=== PATIENT | male | born 1950 | race Caucasian/White ===

== ENCOUNTER 2020-08-06 23:15 | Inpatient (IN) | payer OTHER, MEDICARE ==
--- NOTE | 2020-08-06 23:59 | ER Document Report ---
ED General - General Chief Complaint: Low Blood Pressure Stated Complaint: LOW BLOOD PRESSURE,ALTERED MENTAL STATUS Time Seen by Provider: 08/06/20 23:41 - HPI Onset/Duration: Sudden Quality of pain: No pain Severity: None Pain Level: Denies Context: This is a 70-year-old male with a history of renal insufficiency, not on dialys is that presents from home by EMS for evaluation of reported low blood pressure and altered mental status. Patient states that his told him that he was acting "fuzzy headed" and was taking too much of his tramadol. Patient states he believes he is taking his tramadol appropriately as prescribed. Patient states he is taking 1 tablet every 4 hours. Patient himself is without complaint other than a slight cough. Patient denies chest pain, shortness of breath, confusion, fever, chills, loss of sensation of taste or smell, nausea/vomiting, headache, visual changes. Patient states that nothing seems to exacerbate the cough or alleviate the cough. Patient states he has had the cough for a couple of days. Patient states cough is nonproductive. Patient denies pain with cough. Associated symptoms: Nonproductive cough Exacerbated by: Other - See HPI Relieved by: Other - See HPI - Related Data Allergies/Adverse Reactions: amitriptyline Allergy (Verified 08/06/20 23:23) gabapentin Allergy (Verified 08/06/20 23:23) iodine Allergy (Verified 08/06/20 23:23) nortriptyline Allergy (Verified 08/06/20 23:23) topiramate [From Topamax] Allergy (Verified 08/06/20 23:23) Past Medical History - General Information source: Patient, Emergency Med Personnel - Social History Smoking Status: Never Smoker Family History: Reviewed & Not Pertinent Patient has suicidal ideation: No Patient has homicidal ideation: No Renal/ Medical History: Reports: Hx Renal Insufficiency Review of Systems - Review of Systems Constitutional: See HPI EENT: No symptoms reported Cardiovascular: See HPI Respiratory: Cough Gastrointestinal: No symptoms reported Genitourinary: No symptoms reported Male Genitourinary: No symptoms reported Musculoskeletal: No symptoms reported Skin: No symptoms reported Hematologic/Lymphatic: No symptoms reported Neurological/Psychological: Confusion -: Yes All other systems reviewed and negative Physical Exam - Vital signs Vitals: Temp 97.9 F 08/06/20 23:15 - Notes Notes: CONSTITUTIONAL [Vital signs reviewed, Patient appears comfortable, Alert and oriented X 3, Normal stature.] HEAD [Atraumatic, Normocephalic.] EYES [Eyes are normal to inspection, No discharge from eyes, Extraocular muscles intact, Sclera are normal, Conjunctiva are normal.] NECK [Normal ROM, No jugular venous distention, No meningeal signs, no carotid bruit.] RESPIRATORY CHEST [Chest is nontender, Breath sounds normal, No respiratory distress.] CARDIOVASCULAR [RRR, No murmurs, Normal S1 S2, No rub, No gallop.] ABDOMEN [Abdomen is nontender, No pulsatile masses, No other masses, Bowel sounds normal, No distension, No peritoneal signs, No hernias.] BACK [There is no CVA Tenderness, There is no tenderness to palpation, Normal inspection.] UPPER EXTREMITY [Inspection normal, No cyanosis, No clubbing, No edema, 2+ radial pulses.] LOWER EXTREMITY [Inspection normal, No cyanosis, No clubbing, No edema, No calf tenderness, 2+ femoral pulses.] NEURO [No focal motor deficits, No focal sensory deficits, Speech normal.] SKIN [Skin is warm, Skin is dry, Skin is normal color.] LYMPHATIC [No adenopathy in neck.] PSYCHIATRIC [Normal affect. ] Course - Re-evaluation Re-evalutation: 08/07/20 04:11 Results of ED MSE discussed with patient given the patient's elevated white count, hypertension, comorbidities, presence of pneumonia this MD recommended admission to the patient. Patient agreed to be admitted. All questions were answered. - Vital Signs Vital signs: Temp Pulse Resp BP Pulse Ox 97.9 F 14 87/54 L 97 08/06/20 23:15 08/07/20 04:01 08/07/20 04:01 08/07/20 04:01 - Laboratory Result Diagrams: 08/07/20 00:28 08/07/20 00:28 Laboratory results interpreted by me: 08/07/20 08/07/20 00:28 00:28 WBC 20.4 H RBC 3.50 L Hgb 10.4 L Hct 31.4 L RDW 14.4 H Seg Neuts % (Manual) 79 H Lymphocytes % (Manual) 7 L Monocytes % (Manual) 14 H Abs Neuts (Manual) 16.1 H Abs Monocytes (Manual) 2.9 H Sodium 130.9 L Chloride 94 L BUN 52 H Creatinine 2.79 H Est GFR ( Amer) 27 L Est GFR (MDRD) Non-Af 23 L Glucose 150 H AST 13 L Total Protein 5.2 L Albumin 3.1 L - Diagnostic Test Radiology reviewed: Reports reviewed - Consults dr. eagle Time consulted: 04:09 - dr eagle agreed to see pt in ed, agreed with plan to tx with doxycycline and fluid bolus over 4 hours Reason for consultation: 08/07/20 04:12 pneumonia, hypotension Consulted provider: will come to ER Discharge - Discharge Clinical Impression: Pneumonia Qualifiers: Pneumonia type: due to unspecified organism Laterality: left Lung location: lower lobe of lung Qualified Code(s): J18.9 - Pneumonia, unspecified organism Condition: Stable Disposition: ADMITTED INPATIENT Admitting Provider: Shad (Hospitalist)
[2020-08-07 01:02] LABS: HEMATOCRIT 31.4 % (37.9-51.0); HEMOGLOBIN 10.4 g/dL (13.5-17.0); MEAN CORPUSCULAR HEMOGLOBIN 29.6 pg (27.0-33.4); MEAN CORPUSCULAR VOLUME 90 fl (80-97); PLATELET COUNT 203 10^3/uL (150-450); RED CELL DISTRIBUTION WIDTH 14.4 % (11.5-14.0); WHITE BLOOD COUNT 20.4 10^3/uL (4.0-10.5)
[2020-08-07 01:04] LABS: ALBUMIN 3.1 g/dL (3.5-5.0); ALKALINE PHOSPHATASE 73 U/L (38-126); ANION GAP 12 (5-19); ASPARTATE AMINO TRANSFERASE 13 U/L (17-59); BILIRUBIN,DIRECT 0.4 mg/dL (0.0-0.4); BILIRUBIN,TOTAL 0.8 mg/dL (0.2-1.3); BLOOD UREA NITROGEN 52 mg/dL (7-20); CALCIUM 8.9 mg/dL (8.4-10.2); CARBON DIOXIDE 25 mmol/L (22-30); CHLORIDE 94 mmol/L (98-107); GLUCOSE 150 mg/dL (75-110); POTASSIUM 4.2 mmol/L (3.6-5.0); TOTAL PROTEIN 5.2 g/dL (6.3-8.2)
[2020-08-07 01:21] LABS: ABSOLUTE LYMPHOCYTES# (MANUAL) 1.4 10^3/uL (0.5-4.7); ABSOLUTE MONOCYTES # (MANUAL) 2.9 10^3/uL (0.1-1.4); BASOPHILS % (MANUAL) 0 % (0-2); EOSINOPHILS % (MANUAL) 0 % (0-6); LYMPHOCYTES % (MANUAL) 7 % (13-45); MONOCYTES % (MANUAL) 14 % (3-13); SEGMENTED NEUTROPHILS % (MAN) 79 % (42-78); TOTAL CELLS COUNTED 100
[2020-08-07 01:22] LABS: ANISOCYTOSIS SLIGHT; TOXIC GRANULATION SLIGHT
[2020-08-07 01:23] LABS: PLATELET COMMENT ADEQUATE
--- NOTE | 2020-08-07 03:26 | RADIOLOGY REPORT (SQ) ---
EXAM DESCRIPTION: CT HEAD WITHOUT IMAGES COMPLETED DATE/TIME: 08/07/2020 12:25 am REASON FOR STUDY: mental status change COMPARISON: None. TECHNIQUE: Axial images acquired through the brain without intravenous contrast. Images reviewed wi th bone, brain and subdural windows. Additional sagittal and coronal reconstructions were generated. Images stored on PACS. All CT scanners at this facility use dose modulation, iterative reconstruction, and/or weight based d osing when appropriate to reduce radiation dose to as low as reasonably achievable (ALARA). [facility]: Dose Right [facility]: CareDose [facility]: Dose Right [facility]: Teradose 4D [facility]: Smart [employer] RADIATION DOSE: CT Rad equipment meets quality standard of care and radiation dose reduction techniq ues were employed. CTDIvol: 53.2 mGy. DLP: 1070 mGy-cm. mGy. LIMITATIONS: None. FINDINGS: VENTRICLES: Prominent. CEREBRUM: No masses. No hemorrhage. No midline shift. Areas of low density in the white matter mos t likely due to chronic micro-vascular ischemic change. No evidence for acute infarction. CEREBELLUM: No masses. No hemorrhage. No alteration of density. No evidence for acute infarction. EXTRAAXIAL SPACES: Mild age-related involutional change. No fluid collections. No masses. ORBITS AND GLOBE: No intra- or extraconal masses. Normal contour of globe without masses. CALVARIUM: No fracture. PARANASAL SINUSES: No fluid or mucosal thickening. SOFT TISSUES: No mass or hematoma. OTHER: No other significant finding. IMPRESSION: MILD CHRONIC CHANGES OF ATROPHY AND MICROVASCULAR ISCHEMIA. NO ACUTE PROCESS. EVIDENCE OF ACUTE STROKE: NO. TECHNICAL DOCUMENTATION: JOB ID: [id number] Quality ID # [id number]: Final reports with documentation of one or more dose reduction techniques (e.g., Au tomated exposure control, adjustment of the mA and/or kV according to patient size, use of iterative reconstruction technique) 2010 [employer]- All Rights Reserved Reading location - IP/workstation name: [email or web address]
--- NOTE | 2020-08-07 03:44 | RADIOLOGY REPORT (SQ) ---
EXAM DESCRIPTION: CHEST SINGLE VIEW IMAGES COMPLETED DATE/TIME: 08/07/2020 12:15 am REASON FOR STUDY: cough COMPARISON: None. EXAM PARAMETERS: NUMBER OF VIEWS: One view. TECHNIQUE: Single frontal radiographic view of the chest acquired. RADIATION DOSE: NA LIMITATIONS: None. FINDINGS: LUNGS AND PLEURA: Segmental airspace disease in the left lower lobe. Small left pleural e ffusion. MEDIASTINUM AND HILAR STRUCTURES: No masses. Contour normal. HEART AND VASCULAR STRUCTURES: Heart normal in size. Normal vasculature. BONES: No acute findings. HARDWARE: CABG. OTHER: No other significant finding. IMPRESSION: Left lower lobe pneumonia. TECHNICAL DOCUMENTATION: JOB ID: [id number] 2010 [employer]- All Rights Reserved Reading location - IP/workstation name: [email or web address]
--- NOTE | 2020-08-07 03:48 | RADIOLOGY REPORT (SQ) ---
EXAM DESCRIPTION: KNEE RIGHT 4 VIEWS IMAGES COMPLETED DATE/TIME: 08/07/2020 2:11 am REASON FOR STUDY: right knee pain after fall COMPARISON: None. NUMBER OF VIEWS: Four views. TECHNIQUE: AP, lateral, and both oblique radiographic images acquired of the right knee. LIMITATIONS: None. FINDINGS: MINERALIZATION: Normal. BONES: No acute fracture or dislocation. No worrisome bone lesions. JOINT: No effusion. SOFT TISSUES: Vascular calcifications. OTHER: No other significant finding. IMPRESSION: NO RADIOGRAPHIC EVIDENCE OF ACUTE INJURY. TECHNICAL DOCUMENTATION: JOB ID: [id number] 2010 [employer]- All Rights Reserved Reading location - IP/workstation name: [email or web address]
[2020-08-07] MEDS ORDERED: NORMAL SALINE IV ONE (04:09)
[2020-08-07] MEDS ORDERED: DOXYCYCLINE HYCLATE INJ 100 MG VIAL IV ONE (04:09)
[2020-08-07] MEDS ORDERED: IPRATROPIUM/ALBUTEROL 0.5-2.5 MG/3 ML AMPUL NEB PRN (05:11)
[2020-08-07] MEDS ORDERED: GUAIFENESIN SYRP 200 MG/10 ML UDC PO PRN (05:11)
[2020-08-07] MEDS ORDERED: ACETAMINOPHEN 325 MG TABLET PO PRN (05:11)
[2020-08-07] MEDS ORDERED: PROMETHAZINE HCL 25 MG TABLET PO PRN (05:18)
[2020-08-07] MEDS ORDERED: CYCLOBENZAPRINE HCL 10 MG TABLET PO PRN (05:18)
--- NOTE | 2020-08-07 05:33 | PDOC H&P ---
History of Present Illness Admission Date/PCP: 08/07/20 05:28 KYLIE AMAYA MD Patient complains of: Altered mental status with hypotension and LLL infiltrate History of Present Illness: ALCIDES BARCLAY is a 70 year old male with a history of liver transplant who noted on that he was feeling quite weak. He went to stand up and was very lightheaded. He needed to sit down immediately. Since then he has been unable to stand for any length of time due to weakness. Family also feels that he was slightly confused and called EMS. He reports a productive cough with yellow sputum. He denies fever or chills. He is not short of breath and does not r equire oxygen therapy. He does have a history of coronary disease, liver transplant and chronic back pain. He has hypertension and hyperlipidemia. He was afebrile but his white blood cell count was 20,400. Recent creatinine at the [place] [facility] July 28 was 1.2. BUN is 52 and creatinine is 2.79 at the time of admission. Lactic acid is normal at 1.8. The patient will be given antibiotics. Sputum culture was ordered. Blood cultures are in fact drawn and pending. IV fluids were bolused because of his hypotension and his blood pressures have improved. Past Medical History Cardiac Medical History: Reports: Coronary Artery Disease, Hyperlipidema, H ypertension Pulmonary Medical History: Denies: Asthma Endocrine Medical History: Reports: Diabetes Mellitus Type 2 Renal/ Medical History: Denies: Chronic Kidney Disease GI Medical History: Reports: Other - Liver transplant Psychiatric Medical History: Reports: Tobacco Dependency Denies: Alcohol Dependency, Substance Abuse Past Surgical History Past Surgical History: Reports: Other - Liver transplant Social History Information Source: Patient Lives with: Spouse/Significant other Smoking Status: Former Smoker Electronic Cigarette use?: No Frequency of Alcohol Use: None Hx Recreational Drug Use: No Hx Prescription Drug Abuse: No - Advance Directive Resuscitation Status: Full Code Family History Family History: Reviewed & Not Pertinent Parental Family History Reviewed: Yes Children Family History Reviewed: Yes Sibling(s) Family History Reviewed.: Yes Medication/Allergy Home Medications: Ascorbic Acid [Vitamin C 500 mg Tablet] 500 mg PO DAILY 08/07/20 Aspirin [Ecotrin] 81 mg PO DAILY 08/07/20 Carvedilol [Coreg 3.125 mg Tablet] 3.125 mg PO DAILY 08/07/20 Cetirizine HCl [Zyrtec 10 mg Tablet] 10 mg PO DAILY 08/07/20 Cyclobenzaprine HCl [Flexeril 10 mg Tablet] 10 mg PO TIDP PRN 08/07/20 Fluticasone Propionate [Flovent Diskus] 50 mcg IH DAILY 08/07/20 Hydrochlorothiazide [Hydrodiuril 25 mg Tablet] 25 mg PO DAILY 08/07/20 Lipase/Protease/Amylase [Creon Dr 3,000 Units Capsule] 1 each PO DAILY 08/07/20 Lisinopril 10 mg PO DAILY 08/07/20 Magnesium Oxide 400 mg PO BID 08/07/20 Metformin HCl [Glucophage] 500 mg PO BID 08/07/20 Mycophenolate Mofetil [Cellcept 250 mg Capsule] 1,000 mg PO Q12 08/07/20 Nitroglycerin 0.4 mg SL PRN PRN 08/07/20 Omeprazole 20 mg PO BID 08/07/20 Pregabalin [Lyrica 75 mg Capsule] 75 mg PO TID 08/07/20 Promethazine HCl [Phenergan 25 mg Tablet] 25 mg PO ASDIR PRN 08/07/20 Trazodone HCl 100 mg PO Q4HP PRN 08/07/20 Allergies/Adverse Reactions: amitriptyline Allergy (Verified 08/06/20 23:23) gabapentin Allergy (Verified 08/06/20 23:23) iodine Allergy (Verified 08/06/20 23:23) nortriptyline Allergy (Verified 08/06/20 23:23) topiramate [From Topamax] Allergy (Verified 08/06/20 23:23) Review of Systems All systems: reviewed and no additional remarkable complaints except as stated Constitutional: PRESENT: chills, weakness Respiratory: PRESENT: cough, sputum Physical Exam Vital Signs: Temp Pulse Resp BP Pulse Ox 97.9 F 17 102/52 L 92 08/06/20 23:15 08/07/20 05:01 08/07/20 05:01 08/07/20 05:01 Intake & Output 08/05/20 08/06/20 08/07/20 06:59 06:59 06:59 Intake Total 100 Balance 100 Weight 67.3 kg General appearance: PRESENT: cooperative, mild distress, well-developed, well- nourished Mouth exam: PRESENT: moist, tongue midline Neck exam: PRESENT: carotid bruit - Faint bilateral carotid bruits. ABSENT: JVD, lymphadenopathy Respiratory exam: PRESENT: rales - Right base, symmetrical, unlabored. ABSENT: rhonchi, tachypnea, wheezes Cardiovascular exam: PRESENT: RRR, +S1, +S2. ABSENT: bradycardia, irregular rhythm, tachycardia GI/Abdominal exam: PRESENT: normal bowel sounds, soft. ABSENT: distended, guarding, tenderness Rectal exam: PRESENT: deferred Gentrourinary exam: ABSENT: indwelling catheter Extremities exam: ABSENT: pedal edema Musculoskeletal exam: PRESENT: ambulatory, normal inspection. ABSENT: deformity, dislocation Neurological exam: PRESENT: alert, awake, oriented to person, oriented to place, oriented to time, oriented to situation, CN II-XII grossly intact Psychiatric exam: PRESENT: appropriate affect. ABSENT: agitated, anxious Focused psych exam: ABSENT: delusional, paranoid, restlessness Skin exam: PRESENT: dry, normal color, warm. ABSENT: rash Results Laboratory Results: 08/07/20 00:28 08/07/20 00:28 08/07/20 08/07/20 08/07/20 00:28 00:28 04:12 WBC 20.4 H RBC 3.50 L Hgb 10.4 L Hct 31.4 L MCV 90 MCH 29.6 MCHC 33.0 RDW 14.4 H Plt Count 203 Seg Neutrophils % Not Reportable Sodium 130.9 L Potassium 4.2 Chloride 94 L Carbon Dioxide 25 Anion Gap 12 BUN 52 H Creatinine 2.79 H Est GFR ( Amer) 27 L Glucose 150 H Lactic Acid 1.8 Calcium 8.9 Total Bilirubin 0.8 AST 13 L Alkaline Phosphatase 73 Total Protein 5.2 L Albumin 3.1 L Impressions: Head CT 08/06/20 23:53 IMPRESSION: MILD CHRONIC CHANGES OF ATROPHY AND MICROVASCULAR ISCHEMIA. NO ACUTE PROCESS. EVIDENCE OF ACUTE STROKE: NO. Chest X-Ray 08/06/20 23:55 IMPRESSION: Left lower lobe pneumonia. Knee X-Ray 08/07/20 01:57 IMPRESSION: NO RADIOGRAPHIC EVIDENCE OF ACUTE INJURY. Assessment and Plan - Diagnosis (1) Sepsis associated hypotension Is this a current diagnosis for this admission?: Yes Plan: Continue IV fluids after bolus administered in the emergency department. Maribel tor closely on telemetry. Antibiotics initiated. Hypotension and acute kidney injury present on admission to support sepsis diagnosis. Infiltrate on x-ray and the sepsis is likely due to pneumonia. (2) Pneumonia Qualifiers: Pneumonia type: due to unspecified organism Laterality: left Lung location: lower lobe of lung Qualified Code(s): J18.9 - Pneumonia, unspecified organism Is this a current diagnosis for this admission?: Yes Plan: Community-acquired pneumonia. The patient is started on ceftriaxone and doxyc ycline. The doxycycline does not have to be adjusted for renal function. We will monitor the elevated white blood cell count and it should respond to antibiotics and fluids. The patient does report coughing up yellow sputum and I did order a sputum culture with the next available specimen. (3) Acute kidney injury (JULIAN) with acute tubular necrosis (ATN) Is this a current diagnosis for this admission?: Yes Plan: Recent blood work from the [facility] shows that his serum creatinine was less than half of what it is today. Acute kidney injury is likely due to ATN from hypotension and infection. IV fluids and monitor renal function. Monitor intake and output as well. (4) CAD (coronary artery disease) Qualifiers: Coronary Disease-Associated Artery/Lesion type: crow artery [place] vs. transplanted heart: crow heart Associated angina: without angina Qualified Code(s): I25.10 - Atherosclerotic heart disease of crow coronary artery without angina pectoris Is this a current diagnosis for this admission?: Yes Plan: We will monitor on telemetry. Continue current medications. No symptoms of acute coronary syndrome. No serial troponins were obtained. (5) Status post liver transplant Is this a current diagnosis for this admission?: Yes Plan: Continue mycophenolate. His 1000 mg twice daily dose may need to be adjusted for his renal function. (6) Hyponatremia Is this a current diagnosis for this admission?: Yes Plan: Possibly due to the acute kidney injury and sepsis. Monitor serum sodium l evels. No acute intervention at this time. - Time Time Spent with patient: 35 or more minutes Medications reviewed and adjusted accordingly: Yes Anticipated Discharge Disposition: Home with Home Health Anticipated Discharge Timeframe: 3 to 4 days - Inpatient Certification Based on my medical assessment, after consideration of the patient's comorbidities, presenting symptoms, or acuity I expect that the services needed warrant INPATIENT care.: Yes I certify that my determination is in accordance with my understanding of Medicare's requirements for reasonable and necessary INPATIENT services [42 CFR 412.3e].: Yes Medical Necessity: Significant Comorbidiites Make Outpatient Treatment Too R isky, Need Close Monitoring Due to Risk of Patient Decompensation, Need For IV Fluids, Need For Continuous Telemetry Monitoring, Need for Pain Control, Need for IV Antibiotics Post Hospital Care: D/C or Transfer Summary
[2020-08-07] MEDS: HEPARIN SOD (PORCINE) 5,000 UNIT/ML 1 ML VIAL SUBCUT SCH ×3 (06:13→21:47)
[2020-08-07] MEDS ORDERED: AZITHROMYCIN INJ 500 MG VIAL IV ONE (08:27)
[2020-08-07] MEDS: CEFTRIAXONE 1 GM/D5W RTU 1 GM/50 ML RTUPB IV SCH (08:30)
[2020-08-07] MEDS: RINGERS SOLUTION,LACTATED 1,000 ML IV PRN ×2 (09:25→18:43)
[2020-08-07] MEDS ORDERED: PROTEASE PO SCH (10:00)
[2020-08-07] MEDS ORDERED: AMYLASE PO SCH (10:00)
[2020-08-07] MEDS ORDERED: AZITHROMYCIN 500 MG in DEXTROSE 5%-WATER 250 ML IV ONE (10:00)
[2020-08-07] MEDS ORDERED: LIPASE PO SCH (10:00)
[2020-08-07 10:10] LABS: ABSOLUTE LYMPHOCYTES (AUTO) 1.9 10^3/uL (0.5-4.7); ABSOLUTE MONOCYTES (AUTO) 0.4 10^3/uL (0.1-1.4); ABSOLUTE NEUT (AUTO) 11.2 10^3/uL (1.7-8.2); BASOPHILS % (AUTO) 0.4 % (0-2); EOSINOPHILS % (AUTO) 0.4 % (0-6); HEMATOCRIT 28.6 % (37.9-51.0); HEMOGLOBIN 9.7 g/dL (13.5-17.0); LYMPHOCYTES % (AUTO) 13.9 % (13-45); MEAN CORPUSCULAR HEMOGLOBIN 30.5 pg (27.0-33.4); MEAN CORPUSCULAR VOLUME 90 fl (80-97); PLATELET COUNT 176 10^3/uL (150-450); RED BLOOD COUNT 3.18 10^6/uL (4.35-5.55); RED CELL DISTRIBUTION WIDTH 14.4 % (11.5-14.0); SEGMENTED NEUTROPHILS % (AUTO) 82.3 % (42-78); TOTAL CELLS COUNTED % (AUTO) 100 %; WHITE BLOOD COUNT 13.5 10^3/uL (4.0-10.5)
[2020-08-07 10:28] LABS: ALBUMIN 2.6 g/dL (3.5-5.0); ANION GAP 9 (5-19); BLOOD UREA NITROGEN 51 mg/dL (7-20); CARBON DIOXIDE 23 mmol/L (22-30); CHLORIDE 99 mmol/L (98-107); GLUCOSE 151 mg/dL (75-110); PHOSPHORUS 2.8 mg/dL (2.5-4.5); POTASSIUM 3.9 mmol/L (3.6-5.0)
[2020-08-07 10:40] LABS: C-REACTIVE PROTEIN 215.7 mg/L (<10.0)
[2020-08-07] MEDS ORDERED: MAGNESIUM OXIDE 400 MG TABLET PO ONE (11:30)
[2020-08-07] MEDS: ASPIRIN 81 MG TABLET, ENT COATED PO SCH (11:31)
[2020-08-07] MEDS: PREGABALIN 75 MG CAPSULE PO SCH ×3 (11:31→17:21)
[2020-08-07] MEDS: CETIRIZINE 10 MG TABLET PO SCH (11:31)
[2020-08-07] MEDS: ASCORBIC ACID 500 MG TABLET PO SCH (11:31)
[2020-08-07] MEDS: CARVEDILOL 3.125 MG TABLET PO SCH (11:31)
[2020-08-07] MEDS: METHYLPREDNISOLONE INJ 40 MG/1 ML SDV IV SCH ×2 (11:31→21:48)
[2020-08-07] MEDS: MYCOPHENOLATE MOFETIL 250 MG CAPSULE PO SCH ×2 (14:26→21:47)
[2020-08-07] MEDS ORDERED: DOXYCYCLINE HYCLATE 100 MG in DEXTROSE 5%-WATER 250 ML IV SCH (18:00)
[2020-08-07 19:05] LABS: APPEARANCE,URINE CLEAR; BILIRUBIN,URINE NEGATIVE (NEGATIVE); COLOR,URINE YELLOW; GLUCOSE, URINE NEGATIVE (NEGATIVE); KETONES,URINE NEGATIVE (NEGATIVE); PROTEIN,URINE NEGATIVE (NEGATIVE); URINE SPECIFIC GRAVITY 1.009; UROBILINOGEN,URINE NEGATIVE mg/dL (<2.0)
[2020-08-08] MEDS: RINGERS SOLUTION,LACTATED 1,000 ML IV PRN ×2 (04:34→12:34)
[2020-08-08] MEDS: HEPARIN SOD (PORCINE) 5,000 UNIT/ML 1 ML VIAL SUBCUT SCH ×2 (06:09→13:49)
[2020-08-08 06:10] LABS: ABSOLUTE LYMPHOCYTES (AUTO) 0.6 10^3/uL (0.5-4.7); ABSOLUTE MONOCYTES (AUTO) 0.1 10^3/uL (0.1-1.4); TOTAL CELLS COUNTED % (AUTO) 100 %
[2020-08-08 06:35] LABS: BASOPHILS % (AUTO) 0.1 % (0-2); HEMATOCRIT 30.3 % (37.9-51.0); HEMOGLOBIN 10.7 g/dL (13.5-17.0); LYMPHOCYTES % (AUTO) 6.5 % (13-45); MEAN CORPUSCULAR HEMOGLOBIN 31.3 pg (27.0-33.4); MEAN CORPUSCULAR HGB CONC 35.2 g/dL (32.0-36.0); MEAN CORPUSCULAR VOLUME 89 fl (80-97); PLATELET COUNT 210 10^3/uL (150-450); RED BLOOD COUNT 3.41 10^6/uL (4.35-5.55); RED CELL DISTRIBUTION WIDTH 14.4 % (11.5-14.0); SEGMENTED NEUTROPHILS % (AUTO) 92.4 % (42-78); WHITE BLOOD COUNT 8.7 10^3/uL (4.0-10.5)
[2020-08-08 06:36] LABS: ANION GAP 9 (5-19); BLOOD UREA NITROGEN 35 mg/dL (7-20); CALCIUM 8.6 mg/dL (8.4-10.2); CARBON DIOXIDE 26 mmol/L (22-30); CHLORIDE 101 mmol/L (98-107); GLUCOSE 180 mg/dL (75-110); POTASSIUM 4.3 mmol/L (3.6-5.0)
[2020-08-08] MEDS: CEFTRIAXONE 1 GM/D5W RTU 1 GM/50 ML RTUPB IV SCH (08:52)
[2020-08-08] MEDS ORDERED: MAGNESIUM SULFATE 4 GM/100 ML RTUPB IV ONE (09:00)
[2020-08-08] MEDS: ASPIRIN 81 MG TABLET, ENT COATED PO SCH (09:43)
[2020-08-08] MEDS: PREGABALIN 75 MG CAPSULE PO SCH ×2 (09:43→13:49)
[2020-08-08] MEDS: CETIRIZINE 10 MG TABLET PO SCH (09:43)
[2020-08-08] MEDS: CARVEDILOL 3.125 MG TABLET PO SCH (09:43)
[2020-08-08] MEDS: ASCORBIC ACID 500 MG TABLET PO SCH (09:43)
[2020-08-08] MEDS: MYCOPHENOLATE MOFETIL 250 MG CAPSULE PO SCH (09:45)
[2020-08-08] MEDS: METHYLPREDNISOLONE INJ 40 MG/1 ML SDV IV SCH (09:46)
[2020-08-08] MEDS ORDERED: AZITHROMYCIN INJ 500 MG VIAL IV SCH (10:00)
[2020-08-08] MEDS ORDERED: AZITHROMYCIN 250 MG in DEXTROSE 5%-WATER 250 ML IV SCH (10:00)
--- NOTE | 2020-08-08 12:19 | PDOC DISCHARGE SUMMARY ---
Impression - Admit/DC Date/PCP Admission Date/Primary Care Provider: 08/07/20 05:28 KYLIE AMAYA MD Discharge Date: 08/08/20 - Discharge Diagnosis (1) Community acquired pneumonia Is this a current diagnosis for this admission?: Yes (2) Severe sepsis with acute organ dysfunction Is this a current diagnosis for this admission?: Yes (3) JULIAN (acute kidney injury) Is this a current diagnosis for this admission?: Yes (4) Sepsis associated hypotension Is this a current diagnosis for this admission?: Yes (5) Hypomagnesemia Is this a current diagnosis for this admission?: Yes (6) Hyperglycemia due to diabetes mellitus Is this a current diagnosis for this admission?: Yes (7) Hyponatremia Is this a current diagnosis for this admission?: Yes (8) Status post liver transplant Is this a current diagnosis for this admission?: Yes - Additional Information Resuscitation Status: Full Code Discharge Diet: Regular Referrals: KYLIE AMAYA MD [Primary Care Provider] - Prescriptions: Cefdinir 300 mg PO Q12 5 Days #10 capsule Magnesium Oxide 400 mg PO BID #20 Azithromycin [Zithromax 250 mg Tablet] 250 mg PO DAILY #4 tablet Home Medications: Aspirin [Ecotrin] 81 mg PO DAILY 08/07/20 Carvedilol [Coreg 3.125 mg Tablet] 3.125 mg PO Q12 08/07/20 Cetirizine HCl [Zyrtec 10 mg Tablet] 10 mg PO DAILY 08/07/20 Cyclobenzaprine HCl [Flexeril 10 mg Tablet] 10 mg PO TIDP PRN 08/07/20 Fluticasone Propionate [Flonase Nasal Centuria 50 Mcg/Centuria 16 gm] 2 spray NASL DAILY 08/07/20 Lipase/Protease/Amylase [Creon Dr 3,000 Units Capsule] 1 each PO DAILY 08/07/20 Lisinopril 10 mg PO DAILY 08/07/20 Metformin HCl [Glucophage] 500 mg PO BID 08/07/20 Mycophenolate Mofetil [Cellcept 250 mg Capsule] 1,000 mg PO Q12 08/07/20 Nitroglycerin 0.4 mg SL Q5MP PRN 08/07/20 Omeprazole 20 mg PO BID 08/07/20 Pregabalin [Lyrica 75 mg Capsule] 100 mg PO Q8 09/12/20 Promethazine HCl [Phenergan 25 mg Tablet] 25 mg PO Q6HP PRN 08/07/20 Trazodone HCl 100 mg PO Q4HP PRN 08/07/20 Azithromycin [Zithromax 250 mg Tablet] 250 mg PO DAILY #4 tablet 08/08/20 Cefdinir 300 mg PO Q12 5 Days #10 capsule 08/08/20 Magnesium Oxide 400 mg PO BID #20 08/08/20 History of Present Illiness History of Present Illness: According to admitting provider: ALCIDES BARCLAY is a 70 year old male with a history of liver transplant who noted on that he was feeling quite weak. He went to stand up and was very lightheaded. He needed to sit down immediately. Since then he has been unable to stand for any length of time due to weakness. Family also feels that he was slightly confused and called EMS. He reports a productive cough with yellow sputum. He denies fever or chills. He is not short of breath and does not require oxygen therapy. He does have a history of coronary disease, liver transplant and chronic back pain. He has hypertension and hyperlipidemia. He was afebrile but his white blood cell count was 20,400. Recent creatinine at the ID clinic July 28 was 1.2. BUN is 52 and creatinine is 2.79 at the time of admission. Lactic acid is normal at 1.8. The patient will be given antibiotics. Sputum culture was ordered. Blood cultures are in fact drawn and pending. IV fluids were bolused because of his hypotension and his blood pressures have improved. Hospital Course Hospital Course: Patient was admitted for treatment of severe sepsis with associated hypotension and acute organ dysfunction with JULIAN and altered mental status. Chest x-ray revealed pneumonia. Lab work revealed significant leukocytosis. He was administered aggressive IV fluid hydration as well as IV antibiotics. He was never noted to be hypoxic. Head CT was initially obtained in the ER for evaluation of altered mental status. Head CT was unremarkable. Knee x-ray was obtained which was unremarkable as well. Patient had rapid improvement after initiation of fluid resuscitation as well as IV antibiotics. His metabolic encephalopathy resolved. Since yesterday morning, patient has been quite stable and back to his baseline mental status fully ambulatory. He remains on room air and is doing well. His leukocytosis has resolved. His hypotension has resolved and his blood pressure is normal. His JULIAN has also resolved that his creatinine is back at his baseline as compared to his recent outpatient records of 1.2. Patient is stable and would like to go home today. Patient has been tested for COVID-19 but the result is pending and he will follow-up with these results. He has been given instructions on self-isolation until he gets the results. Instructed to follow-up with his primary care provider whom he says he will call tomorrow. He will be given 5 more days of antibiotics with cefdinir and azithromycin. He is also going to receive 4 g of magnesium sulfate before he leaves today. He will resume magnesium oxide supplements at home. Instructed to hold on his chlorthalidone due to initial hypotension but he is okay to continue his lisinopril 10 mg daily. Physical Exam Vital Signs: Temp Pulse Resp BP Pulse Ox 98.0 F 100 16 120/63 93 08/08/20 09:04 08/08/20 11:05 08/08/20 11:05 08/08/20 07:43 08/08/20 11:05 Intake & Output 08/07/20 08/08/20 08/09/20 06:59 06:59 06:59 Intake Total 100 2786 Balance 100 2786 Weight 64.9 kg 66.8 kg General appearance: PRESENT: no acute distress, cooperative Neck exam: ABSENT: JVD Respiratory exam: PRESENT: clear to auscultation joaquín Cardiovascular exam: PRESENT: +S1, +S2 GI/Abdominal exam: PRESENT: soft. ABSENT: tenderness Musculoskeletal exam: PRESENT: ambulatory Neurological exam: PRESENT: alert, awake, oriented to person, oriented to place, oriented to time, oriented to situation Psychiatric exam: ABSENT: agitated, anxious Focused psych exam: ABSENT: pressured speech Results Laboratory Results: WBC 8.7 10^3/uL (4.0-10.5) 08/08/20 05:20 RBC 3.41 10^6/uL (4.35-5.55) L 08/08/20 05:20 Hgb 10.7 g/dL (13.5-17.0) L 08/08/20 05:20 Hct 30.3 % (37.9-51.0) L 08/08/20 05:20 MCV 89 fl (80-97) 08/08/20 05:20 MCH 31.3 pg (27.0-33.4) 08/08/20 05:20 MCHC 35.2 g/dL (32.0-36.0) 08/08/20 05:20 RDW 14.4 % (11.5-14.0) H 08/08/20 05:20 Plt Count 210 10^3/uL (150-450) 08/08/20 05:20 Lymph % (Auto) 6.5 % (13-45) L 08/08/20 05:20 [place] % (Auto) 1.0 % (3-13) L 08/08/20 05:20 Eos % (Auto) 0.0 % (0-6) 08/08/20 05:20 Baso % (Auto) 0.1 % (0-2) 08/08/20 05:20 Absolute Neuts (auto) 8.0 10^3/uL (1.7-8.2) 08/08/20 05:20 Absolute Lymphs (auto) 0.6 10^3/uL (0.5-4.7) 08/08/20 05:20 Absolute Monos (auto) 0.1 10^3/uL (0.1-1.4) 08/08/20 05:20 Absolute Eos (auto) 0.0 10^3/uL (0.0-0.6) 08/08/20 05:20 Absolute Basos (auto) 0.0 10^3/uL (0.0-0.2) 08/08/20 05:20 Total Counted 100 08/07/20 00:28 Seg Neutrophils % 92.4 % (42-78) H 08/08/20 05:20 Seg Neuts % (Manual) 79 % (42-78) H 08/07/20 00:28 Lymphocytes % (Manual) 7 % (13-45) L 08/07/20 00:28 Monocytes % (Manual) 14 % (3-13) H 08/07/20 00:28 Eosinophils % (Manual) 0 % (0-6) 08/07/20 00:28 Basophils % (Manual) 0 % (0-2) 08/07/20 00:28 Abs Neuts (Manual) 16.1 10^3/uL (1.7-8.2) H 08/07/20 00:28 Abs Lymphs (Manual) 1.4 10^3/uL (0.5-4.7) 08/07/20 00:28 Abs Monocytes (Manual) 2.9 10^3/uL (0.1-1.4) H 08/07/20 00:28 Absolute Eos (Manual) 0.0 10^3/uL (0.0-0.6) 08/07/20 00:28 Abs Basophils (Manual) 0.0 10^3/uL (0.0-0.2) 08/07/20 00:28 Toxic Granulation SLIGHT 08/07/20 00:28 Platelet Comment ADEQUATE 08/07/20 00:28 Basophilic Stippling PRESENT 08/07/20 00:28 Anisocytosis SLIGHT 08/07/20 00:28 D-Dimer 0.48 ug/mL (0.00-0.50) 08/07/20 09:27 Sodium 135.5 mmol/L (137-145) L 08/08/20 05:20 Potassium 4.3 mmol/L (3.6-5.0) 08/08/20 05:20 Chloride 101 mmol/L (98-107) 08/08/20 05:20 Carbon Dioxide 26 mmol/L (22-30) 08/08/20 05:20 Anion Gap 9 (5-19) 08/08/20 05:20 BUN 35 mg/dL (7-20) H 08/08/20 05:20 Creatinine 1.10 mg/dL (0.52-1.25) 08/08/20 05:20 Est GFR ( Amer) > 60 (>60) 08/08/20 05:20 Est GFR (MDRD) Non-Af > 60 (>60) 08/08/20 05:20 Glucose 180 mg/dL (75-110) H 08/08/20 05:20 Lactic Acid 1.8 mmol/L (0.7-2.1) 08/07/20 04:12 Calcium 8.6 mg/dL (8.4-10.2) 08/08/20 05:20 Phosphorus 2.8 mg/dL (2.5-4.5) 08/07/20 09:27 Magnesium 1.1 mg/dL (1.6-2.3) L* 08/08/20 05:20 Ferritin 185.00 ng/mL (17.9-464.0) 08/07/20 09:27 Total Bilirubin 0.8 mg/dL (0.2-1.3) 08/07/20 00:28 Direct Bilirubin 0.4 mg/dL (0.0-0.4) 08/07/20 00:28 Neonat Total Bilirubin Not Reportable 08/07/20 00:28 Neonat Direct Bilirubin Not Reportable 08/07/20 00:28 Neonat Indirect Bili Not Reportable 08/07/20 00:28 AST 13 U/L (17-59) L 08/07/20 00:28 ALT 10 U/L (<50) 08/07/20 00:28 Alkaline Phosphatase 73 U/L (38-126) 08/07/20 00:28 Lactate Dehydrogenase 131 U/L (120-246) 08/07/20 09:27 C-Reactive Protein 215.7 mg/L (<10.0) H 08/07/20 09:27 Total Protein 5.2 g/dL (6.3-8.2) L 08/07/20 00:28 Albumin 2.6 g/dL (3.5-5.0) L 08/07/20 09:27 Urine Color YELLOW 08/07/20 18:45 Urine Appearance CLEAR 08/07/20 18:45 Urine pH 5.0 (5.0-9.0) 08/07/20 18:45 Ur Specific [place] 1.009 08/07/20 18:45 Urine Protein NEGATIVE mg/dL (NEGATIVE) 08/07/20 18:45 Urine Glucose (UA) NEGATIVE mg/dL (NEGATIVE) 08/07/20 18:45 Urine Ketones NEGATIVE mg/dL (NEGATIVE) 08/07/20 18:45 Urine Blood NEGATIVE (NEGATIVE) 08/07/20 18:45 Urine Nitrite (Reflex) NEGATIVE (NEGATIVE) 08/07/20 18:45 Urine Bilirubin NEGATIVE (NEGATIVE) 08/07/20 18:45 Urine Urobilinogen NEGATIVE mg/dL (<2.0) 08/07/20 18:45 Leukocyte Esterase Rfl NEGATIVE (NEGATIVE) 08/07/20 18:45 Urine RBC (Auto) 0 /HPF 08/07/20 18:45 Urine WBC (Reflex) < 1 /HPF 08/07/20 18:45 Urine Mucus (Auto) RARE /LPF 08/07/20 18:45 Urine Ascorbic Acid 40 (NEGATIVE) H 08/07/20 18:45 Impressions: Head CT 08/06/20 23:53 IMPRESSION: MILD CHRONIC CHANGES OF ATROPHY AND MICROVASCULAR ISCHEMIA. NO ACUTE PROCESS. EVIDENCE OF ACUTE STROKE: NO. Chest X-Ray 08/06/20 23:55 IMPRESSION: Left lower lobe pneumonia. Knee X-Ray 08/07/20 01:57 IMPRESSION: NO RADIOGRAPHIC EVIDENCE OF ACUTE INJURY. Plan Time Spent: Greater than 30 Minutes Stroke Is this a Stroke Patient?: No Acute Heart Failure Is this a Heart Failure Patient?: No
[2020-08-08 13:09] VITALS: BP 130/70
--- NOTE | 2020-08-09 02:28 | EKG REPORT ---
SEVERITY:- ABNORMAL ECG - PROBABLE ATRIAL FIBRILLATION LEFT AXIS DEVIATION : Confirmed by: Jae Elliott MD 09-Aug-2020 02:27:26
--- NOTE | 2020-08-09 02:29 | EKG REPORT ---
SEVERITY:- OTHERWISE NORMAL ECG - SINUS RHYTHM FIRST DEGREE AV BLOCK LEFT AXIS DEVIATION : Confirmed by: Jae Elliott MD 09-Aug-2020 02:28:31
== END 2020-08-08 15:30 | disposition home or self-care (01) | DRG 871 ==
LOC: ER 23:15 → EH 08-07 05:28 → 3W 08-07 06:56
PROVIDERS: ADMIT Hospitalist; ATTEND Internal Medicine
DX: A41.9 Sepsis, unspecified organism (principal); N17.0 Acute kidney failure with tubular necrosis; Z94.4 Liver transplant status; E87.1 Hypo-osmolality and hyponatremia; I25.10 Atherosclerotic heart disease of native coronary artery without angina pectoris; Z20.828 Contact with and (suspected) exposure to other viral communicable diseases; R65.20 Severe sepsis without septic shock; E83.42 Hypomagnesemia; E11.65 Type 2 diabetes mellitus with hyperglycemia; I10 Essential (primary) hypertension; E78.5 Hyperlipidemia, unspecified; G89.29 Other chronic pain; Z79.82 Long term (current) use of aspirin; Z79.890 Hormone replacement therapy; Z79.899 Other long term (current) drug therapy; Z87.891 Personal history of nicotine dependence; Z88.6 Allergy status to analgesic agent; Z88.8 Allergy status to other drugs, medicaments and biological substances
CPT/HCPCS: 36415; 70450; 71045; 80048; 80053; 80069; 81001; 82728; 83605; 83615; 83735; 85025; 85379; 86140; 87040; 87635; 93005; 93010; 96365; 99285; C9803; J0456; J0696; J1644; J2920; J3475; J3490; J7030; J7060; J7120; J7517

== ENCOUNTER 2020-10-05 17:57 | Inpatient (IN) | payer OTHER, MEDICARE ==
--- NOTE | 2020-10-05 19:57 | RADIOLOGY REPORT (SQ) ---
EXAM DESCRIPTION: CHEST SINGLE VIEW IMAGES COMPLETED DATE/TIME: 10/05/2020 7:48 pm REASON FOR STUDY: bed 9 sepsis protocol COMPARISON: 08/07/2020 EXAM PARAMETERS: NUMBER OF VIEWS: One view. TECHNIQUE: Single frontal radiographic view of the chest acquired. RADIATION DOSE: NA LIMITATIONS: None. FINDINGS: LUNGS AND PLEURA: Chronic interstitial changes in the lung bases with slightly increased o pacification in the right lower lobe compared to the earlier study. MEDIASTINUM AND HILAR STRUCTURES: No masses. Contour normal. HEART AND VASCULAR STRUCTURES: Heart normal in size. Normal vasculature. BONES: No acute findings. HARDWARE: Sternotomy wires. OTHER: No other significant finding. IMPRESSION: Chronic lung changes. Cannot exclude a limited right lower lobe pneumonia superimposed. TECHNICAL DOCUMENTATION: JOB ID: [id number] 2010 [employer]- All Rights Reserved Reading location - IP/workstation name: [email or web address]
[2020-10-05 20:01] LABS: ALBUMIN 3.1 g/dL (3.5-5.0); ALKALINE PHOSPHATASE 69 U/L (38-126); ANION GAP 8 (5-19); ASPARTATE AMINO TRANSFERASE 17 U/L (17-59); BILIRUBIN,DIRECT 0.1 mg/dL (0.0-0.4); BILIRUBIN,TOTAL 0.7 mg/dL (0.2-1.3); BLOOD UREA NITROGEN 71 mg/dL (7-20); CALCIUM 8.9 mg/dL (8.4-10.2); CARBON DIOXIDE 26 mmol/L (22-30); CHLORIDE 96 mmol/L (98-107); GLUCOSE 166 mg/dL (75-110); POTASSIUM 4.7 mmol/L (3.6-5.0); TOTAL PROTEIN 5.1 g/dL (6.3-8.2)
[2020-10-05 20:05] LABS: HEMATOCRIT 33.7 % (37.9-51.0); HEMOGLOBIN 11.1 g/dL (13.5-17.0); INTERNATIONAL RATION (INR) 1.01; MEAN CORPUSCULAR HEMOGLOBIN 29.9 pg (27.0-33.4); MEAN CORPUSCULAR HGB CONC 32.9 g/dL (32.0-36.0); MEAN CORPUSCULAR VOLUME 91 fl (80-97); PLATELET COUNT 213 10^3/uL (150-450); PROTHROMBIN TIME 13.5 SEC (11.4-15.4); RED BLOOD COUNT 3.71 10^6/uL (4.35-5.55)
[2020-10-05 20:34] LABS: ABSOLUTE LYMPHOCYTES# (MANUAL) 3.2 10^3/uL (0.5-4.7); ABSOLUTE MONOCYTES # (MANUAL) 0.6 10^3/uL (0.1-1.4); BAND NEUTROPHILS % (MANUAL) 2 % (3-5); BASOPHILS % (MANUAL) 0 % (0-2); EOSINOPHILS % (MANUAL) 1 % (0-6); LYMPHOCYTES % (MANUAL) 10 % (13-45); MONOCYTES % (MANUAL) 2 % (3-13); SEGMENTED NEUTROPHILS % (MAN) 85 % (42-78); TOTAL CELLS COUNTED 100
[2020-10-05 20:36] LABS: OVALOCYTES SLIGHT
[2020-10-05 20:37] LABS: ANISOCYTOSIS SLIGHT; PLATELET COMMENT ADEQUATE
[2020-10-05] MEDS ORDERED: CEFEPIME 2 GM/D5W RTU 2 GM/50 ML RTUPB IV ONE (20:38)
--- NOTE | 2020-10-05 20:41 | ER Document Report ---
ED General - General Chief Complaint: General Weakness Stated Complaint: WEAKNESS Time Seen by Provider: 10/05/20 20:01 Notes: Patient is a 70-year-old male that comes emergency department for chief complaint of generalized weakness, decreased appetite, and 3 falls today. Patient states that he just feels weak, his knee on the right side will give out, and he will slumped to the ground. He denies hitting his head, chest pain, dizziness, passing out. He denies fever/chills, difficulty breathing, abdominal pain, focal numbness or weakness. Past medical history is extensive and includes liver transplant at [place], type 2 diabetes, chronic kidney disease, hypertension, CAD with stents and CABG. He is on aspirin but no other blood thinners. - Related Data Allergies/Adverse Reactions: amitriptyline Allergy (Verified 08/06/20 23:23) gabapentin Allergy (Verified 08/06/20 23:23) iodine Allergy (Verified 08/06/20 23:23) nortriptyline Allergy (Verified 08/06/20 23:23) topiramate [From Topamax] Allergy (Verified 08/06/20 23:23) Past Medical History - General Information source: Patient, Relative - Social History Smoking Status: Former Smoker Chew tobacco use (# tins/day): No Frequency of alcohol use: None Drug Abuse: None Lives with: Family Family History: Reviewed & Not Pertinent Patient has homicidal ideation: No - Past Medical History Cardiac Medical History: Reports: Hx Coronary Artery Disease, Hx Hypercholesterolemia, Hx Hypertension Pulmonary Medical History: Denies: Hx Asthma Endocrine Medical History: Reports: Hx Diabetes Mellitus Type 2 Renal/ Medical History: Reports: Hx Renal Insufficiency Psychiatric Medical History: Denies: Hx Depression Past Surgical History: Reports: Hx Cardiac Surgery, Hx Open Heart Surgery, Other - Liver transplant - Immunizations Immunizations up to date: Yes Hx Diphtheria, Pertussis, Tetanus Vaccination: Yes Review of Systems - Review of Systems Constitutional: See HPI EENT: No symptoms reported Cardiovascular: No symptoms reported Respiratory: No symptoms reported Gastrointestinal: No symptoms reported Genitourinary: No symptoms reported Male Genitourinary: No symptoms reported Musculoskeletal: See HPI Skin: No symptoms reported Hematologic/Lymphatic: No symptoms reported Neurological/Psychological: See HPI Physical Exam - Vital signs Vitals: Temp 97.9 F 10/05/20 17:57 - Notes Notes: GENERAL: Patient is slightly pale in appearance but he is alert, interactive, and talkative HEAD: Normocephalic, atraumatic. EYES: Pupils equal, round, and reactive to light. Extraocular movements intact. ENT: Oral mucosa dry, tongue midline. Oropharynx unremarkable. Airway patent. NECK: Full range of motion. Supple. Trachea midline. No lymphadenopathy. LUNGS: Clear to auscultation bilaterally, no wheezes, rales, or rhonchi. No respiratory distress. Non-tender chest wall. HEART: Regular rate and rhythm. No murmur ABDOMEN: Soft, non-tender. Non-distended. EXTREMITIES: Moves all 4 extremities spontaneously. No edema, normal radial and dorsalis pedis pulses bilaterally. No cyanosis. BACK: no cervical, thoracic, lumbar midline tenderness. No saddle anesthesia, normal distal neurovascular exam. Moves all extremities in full range of motion. NEUROLOGICAL: Alert and oriented x3. Normal speech. Cranial nerves II through XII grossly intact. Strength 5/5 in all extremities. PSYCH: Normal affect, normal mood. SKIN: Pale Course - Re-evaluation Re-evalutation: On my evaluation patient is somewhat pale and slightly ill-appearing but he is still talkative, alert, and nontoxic. He is not tachycardic or febrile but he is hypotensive on my initial evaluation. Patient was given IV fluids (lactated Ringer's), after this hypotension improved to 97 systolic and then resolved at 116 systolic. Patient has no neurological deficits on exam. He has a small bruise on his right ankle and right knee but no other signs of trauma. No reported head injuries. No headache. CBC shows marked leukocytosis at 31.5 with 2% bandemia and elevation of neutrophils. Chest x-ray has the appearance of right lower no pneumonia per my read and suggested by radiology read. Blood cultures pending, starting antibiotics. Patient has been hospitalized within the past month per so he will be treated with coverage for hospital-acquired pneumonia. Chemistry nonspecific with elevated creatinine 2.5 but this is not significantly changed f rom prior. Troponin is negative, lactic acid is not elevated, urine nonspecific. Because of patient's hypotension, pneumonia, cytosis, and multiple risk factors will discuss with hospitalist for admission. Patient and state understanding and agreement. Discussed with , patient accepted full admission to the medical floor. - Vital Signs Vital signs: Temp Pulse Resp BP Pulse Ox 97.9 F 17 87/30 L 94 10/05/20 17:57 10/05/20 20:01 10/05/20 20:01 10/05/20 20:01 - Laboratory Result Diagrams: 10/05/20 18:12 10/05/20 18:12 Laboratory results interpreted by me: 10/05/20 10/05/20 10/05/20 18:12 18:12 20:20 WBC 31.5 H* RBC 3.71 L Hgb 11.1 L Hct 33.7 L Seg Neuts % (Manual) 85 H Band Neutrophils % 2 L Lymphocytes % (Manual) 10 L Monocytes % (Manual) 2 L Abs Neuts (Manual) 27.4 H Sodium 129.8 L Chloride 96 L BUN 71 H Creatinine 2.56 H Est GFR ( Amer) 30 L Est GFR (MDRD) Non-Af 25 L Glucose 166 H POC Glucose 140 H Total Protein 5.1 L Albumin 3.1 L - EKG Interpretation by Me Additional EKG results interpreted by me: EKG shows sinus rhythm at a rate of 87, first-degree AV block with FL interval of 288, Q waves inferiorly, no T wave inversions or ST segment changes in consecutive leads. Discharge - Discharge Clinical Impression: Weakness Pneumonia Qualifiers: Pneumonia type: due to unspecified organism Laterality: left Lung location: lower lobe of lung Qualified Code(s): J18.9 - Pneumonia, unspecified organism Leukocytosis Qualifiers: Leukocytosis type: unspecified Qualified Code(s): D72.829 - Elevated white b lood cell count, unspecified Hypotension Qualifiers: Hypotension type: unspecified hypotension type Qualified Code(s): I95.9 - Hypotension, unspecified Condition: Stable Disposition: ADMITTED INPATIENT Admitting Provider: [facility] Unit Admitted: Medical Floor
[2020-10-05 20:55] LABS: VENOUS BLOOD BASE EXCESS -0.7 mmol/L; VENOUS BLOOD HCO3 25.4 mmol/L (20-32); VENOUS BLOOD PH 7.34 (7.30-7.42)
[2020-10-05 20:57] LABS: WHITE BLOOD COUNT 31.5 10^3/uL (4.0-10.5)
[2020-10-05 20:59] LABS: APPEARANCE,URINE CLEAR; BILIRUBIN,URINE NEGATIVE (NEGATIVE); COLOR,URINE YELLOW; GLUCOSE, URINE NEGATIVE (NEGATIVE); KETONES,URINE NEGATIVE (NEGATIVE); PROTEIN,URINE NEGATIVE (NEGATIVE); UROBILINOGEN,URINE NEGATIVE mg/dL (<2.0)
[2020-10-05] MEDS ORDERED: VANCOMYCIN HCL INJ 1000 MG VIAL IV ONE (21:26)
--- NOTE | 2020-10-05 21:31 | RADIOLOGY REPORT (SQ) ---
XR KNEE 1-2 VIEWS CLINICAL STATEMENT: fall, pain COMPARISON: None FINDINGS: Bony alignment is anatomic. There is no fracture or dislocation. The soft tissues are unremarkable. Moderate diffuse vascular calcification. IMPRESSION: No fracture.
[2020-10-05] MEDS: RINGERS SOLUTION,LACTATED 1,000 ML IV PRN ×2 (21:36→23:03)
--- NOTE | 2020-10-05 21:36 | RADIOLOGY REPORT (SQ) ---
EXAM DESCRIPTION: ANKLE RIGHT AP/LATERAL RadLex: XR ANKLE 2 VIEWS Views: 3 CLINICAL HISTORY: 70 years Male; fall, pain; COMPARISON: None. FINDINGS: Negative for acute fracture, dislocation, or radiopaque foreign body. Extensive vascular calcifications are noted. IMPRESSION: 1. No acute findings.
[2020-10-05] MEDS ORDERED: ACETAMINOPHEN 325 MG TABLET PO PRN (21:59)
[2020-10-05] MEDS ORDERED: RINGERS SOLUTION,LACTATED 1,000 ML IV PRN (21:59)
--- NOTE | 2020-10-05 22:07 | PDOC H&P ---
History of Present Illness Admission Date/PCP: KYLIE AMAYA MD Patient complains of: Generalized weakness, fall History of Present Illness: ALCIDES BARCLAY is a 70 year old male with a history of liver transplant in 1992, hypertension, GERD and CAD status post CABG now presents with generalized weakness. Patient reports that the past week he has lost appetite, has not been able to do his daily activity. In this morning while he was trying to walk to the bathroom with his right knee gave out and he fell down but he denies any head injury, loss of consciousness, dizziness during the incident. He states that he had cough 2 weeks back and has completed antibiotics for it. His who is at bedside states that he has not been coherent and has been wobbling when he walks. He denies nausea, vomiting, abdominal pain, diarrhea, chest pain, palpitation, weakness of extremity. He denies any recent sick contact history. Past Medical History Cardiac Medical History: Reports: Coronary Artery Disease, Hyperlipidema, Hypertension Pulmonary Medical History: Denies: Asthma Endocrine Medical History: Reports: Diabetes Mellitus Type 2 Psychiatric Medical History: Denies: Depression Past Surgical History Past Surgical History: Reports: Other - Liver transplant Social History Information Source: Patient Lives with: Family Smoking Status: Former Smoker Electronic Cigarette use?: No Frequency of Alcohol Use: None Hx Recreational Drug Use: No Drugs: None Hx Prescription Drug Abuse: No - Advance Directive Resuscitation Status: Full Code Family History Family History: Reviewed & Not Pertinent Parental Family History Reviewed: Yes Children Family History Reviewed: Yes Sibling(s) Family History Reviewed.: Yes Medication/Allergy Home Medications: Aspirin [Ecotrin] 81 mg PO DAILY 08/07/20 Carvedilol [Coreg 3.125 mg Tablet] 3.125 mg PO Q12 08/07/20 Cetirizine HCl [Zyrtec 10 mg Tablet] 10 mg PO DAILY 08/07/20 Cyclobenzaprine HCl [Flexeril 10 mg Tablet] 10 mg PO TIDP PRN 08/07/20 Fluticasone Propionate [Flonase Nasal [place] 50 Mcg/[place] 16 gm] 2 spray NASL DAILY 08/07/20 Lipase/Protease/Amylase [Ryan Dr 3,000 Units Capsule] 1 each PO DAILY 08/07/20 Lisinopril 10 mg PO DAILY 08/07/20 Metformin HCl [Glucophage] 500 mg PO BID 08/07/20 Mycophenolate Mofetil [Cellcept 250 mg Capsule] 1,000 mg PO Q12 08/07/20 Nitroglycerin 0.4 mg SL Q5MP PRN 08/07/20 Omeprazole 20 mg PO BID 08/07/20 Pregabalin [Lyrica 75 mg Capsule] 100 mg PO Q8 08/07/20 Promethazine HCl [Phenergan 25 mg Tablet] 25 mg PO Q6HP PRN 08/07/20 Trazodone HCl 100 mg PO Q4HP PRN 08/07/20 Azithromycin [Zithromax 250 mg Tablet] 250 mg PO DAILY #4 tablet 08/08/20 Cefdinir 300 mg PO Q12 5 Days #10 capsule 08/08/20 Magnesium Oxide 400 mg PO BID #20 08/08/20 Allergies/Adverse Reactions: amitriptyline Allergy (Verified 08/06/20 23:23) gabapentin Allergy (Verified 08/06/20 23:23) iodine Allergy (Verified 08/06/20 23:23) nortriptyline Allergy (Verified 08/06/20 23:23) topiramate [From Topamax] Allergy (Verified 08/06/20 23:23) Review of Systems Constitutional: PRESENT: as per HPI Eyes: ABSENT: visual disturbances Ears: ABSENT: hearing changes Nose, Mouth, and Throat: ABSENT: as per HPI, headache(s), mouth pain, sore throat, vertigo, other Cardiovascular: PRESENT: as per HPI Respiratory: PRESENT: as per HPI Gastrointestinal: ABSENT: abdominal pain, constipation, diarrhea, hematemesis, hematochezia, nausea, vomiting Genitourinary: ABSENT: dysuria, hematuria Integumentary: ABSENT: rash, wounds Neurological: ABSENT: abnormal gait, abnormal speech, confusion, dizziness, focal weakness, syncope Psychiatric: ABSENT: anxiety, depression, homidical ideation, suicidal ideation Endocrine: ABSENT: cold intolerance, heat intolerance, polydipsia, polyuria Hematologic/Lymphatic: ABSENT: easy bleeding, easy bruising Physical Exam Vital Signs: Temp Pulse Resp BP Pulse Ox 97.9 F 17 87/30 L 94 10/05/20 17:57 10/05/20 20:01 10/05/20 20:01 10/05/20 20:01 Intake & Output 10/04/20 10/05/20 10/06/20 06:59 06:59 06:59 Intake Total 400 Balance 400 Weight 65.5 kg Additional comments: GENERAL APPEARANCE: Alert and oriented x3, no acute distress HEENT: Normocephalic and atraumatic. No scleral icterus. Dry oral mucosa NECK: Supple. No lymphadenopathy or tenderness. No carotid bruit. No JVD CHEST: Symmetric. Nontender to palpation. LUNGS: Has faint scattered wheezes bilaterally HEART: Regular rate and rhythm with normal S1 and S2. No murmurs, gallops, or rubs. ABDOMEN: Flat, soft, active bowel sounds, no direct or rebound tenderness. No organomegaly detected. No CVA tenderness EXTREMITIES: No cyanosis, clubbing, or edema. MUSCULOSKELETAL: No deformity, atrophy or swelling noted PSYCHIATRIC: Recent and remote memory is intact. Appropriate mood and affect. SKIN: Warm, dry, and well perfused. No lesions or rashes are noted. NEUROLOGIC: No focal sensory or motor deficits are noted. Results Laboratory Results: 10/05/20 18:12 10/05/20 18:12 10/05/20 10/05/20 10/05/20 18:12 18:12 20:05 WBC 31.5 H* RBC 3.71 L Hgb 11.1 L Hct 33.7 L MCV 91 MCH 29.9 MCHC 32.9 RDW 14.0 Plt Count 213 Seg Neutrophils % Not Reportable VBG pH VBG pCO2 VBG HCO3 VBG Base Excess Sodium 129.8 L Potassium 4.7 Chloride 96 L Carbon Dioxide 26 Anion Gap 8 BUN 71 H Creatinine 2.56 H Est GFR ( Amer) 30 L Glucose 166 H Lactic Acid 1.0 Calcium 8.9 Total Bilirubin 0.7 AST 17 Alkaline Phosphatase 69 Total Protein 5.1 L Albumin 3.1 L Urine Color Urine Appearance Urine pH Ur Specific [place] Urine Protein Urine Glucose (UA) Urine Ketones Urine Blood Urine RBC (Auto) 10/05/20 10/05/20 20:17 20:41 WBC RBC Hgb Hct MCV MCH MCHC RDW Plt Count Seg Neutrophils % VBG pH 7.34 VBG pCO2 48.0 VBG HCO3 25.4 VBG Base Excess -0.7 Sodium Potassium Chloride Carbon Dioxide Anion Gap BUN Creatinine Est GFR ( Amer) Glucose Lactic Acid Calcium Total Bilirubin AST Alkaline Phosphatase Total Protein Albumin Urine Color YELLOW Urine Appearance CLEAR Urine pH 5.0 Ur Specific [place] 1.020 Urine Protein NEGATIVE Urine Glucose (UA) NEGATIVE Urine Ketones NEGATIVE Urine Blood NEGATIVE Urine RBC (Auto) 2 10/05/20 18:12 Troponin I < 0.012 Impressions: Chest X-Ray 10/05/20 19:37 IMPRESSION: Chronic lung changes. Cannot exclude a limited right lower lobe pneumonia superimposed. Ankle X-Ray 10/05/20 20:39 IMPRESSION: 1. No acute findings. Knee X-Ray 10/05/20 20:39 IMPRESSION: No fracture. Assessment and Plan - Diagnosis (1) Sepsis Is this a current diagnosis for this admission?: Yes Plan: Patient meets criteria Has leukocytosis 31.5k with left shift Was hypotensive on presentation which improved after 1 L LR administration at the ED Lactic acid within normal Likely source of infection pneumonia Continue IV antibiotic Follow-up with blood culture Closely monitor vital signs and hydrate accordingly (2) Pneumonia Qualifiers: Pneumonia type: due to unspecified organism Laterality: left Lung location: lower lobe of lung Qualified Code(s): J18.9 - Pneumonia, unspecified organism Is this a current diagnosis for this admission?: Yes Plan: Presented with cough and subjective fever Chest x-ray significant for right lower lobe pneumonia Has leukocytosis with left shift Continue ceftriaxone and azithromycin Follow-up with blood culture (3) JULIAN (acute kidney injury) Is this a current diagnosis for this admission?: Yes Plan: BUN/creatinine on presentation 71/2.56 Likely prerenal due to hypovolemia Ordered urine sodium and urine creatinine Continue IV hydration Monitor renal indicis Avoid nephrotoxic's and renally dose medications (4) Leukocytosis Qualifiers: Leukocytosis type: unspecified Qualified Code(s): D72.829 - Elevated white blood cell count, unspecified Is this a current diagnosis for this admission?: Yes Plan: Patient had a WBC count of 31.5K on presentation Continue treating underlying cause as stated above (5) CAD (coronary artery disease) Qualifiers: Coronary Disease-Associated Artery/Lesion type: bypass graft [place] vs. transplanted heart: [place] heart Associated angina: without angina Qualified Code(s): I25.810 - Atherosclerosis of coronary artery bypass graft(s) without angina pectoris Is this a current diagnosis for this admission?: Yes Plan: Currently patient has no chest pain Continue home medications (6) Status post liver transplant Is this a current diagnosis for this admission?: Yes Plan: Transplant was done in 1992 Currently stable and liver function tests are within the normal limit - Time Time Spent with patient: 35 or more minutes Total Critical Time (Minutes): 45 Medications reviewed and adjusted accordingly: Yes Anticipated Discharge Disposition: Home, Self Care Anticipated Discharge Timeframe: within 48 hours - Inpatient Certification Based on my medical assessment, after consideration of the patient's comorbidities, presenting symptoms, or acuity I expect that the services needed warrant INPATIENT care.: Yes I certify that my determination is in accordance with my understanding of Medicare's requirements for reasonable and necessary INPATIENT services [42 CFR 412.3e].: Yes Medical Necessity: Need Close Monitoring Due to Risk of Patient Decompensation, Need For IV Fluids, Need for IV Antibiotics, Risk of Complication if Not Cared For in Hospital Post Hospital Care: D/C or Transfer Summary
[2020-10-05] MEDS: HEPARIN SOD (PORCINE) 5,000 UNIT/ML 1 ML VIAL SUBCUT SCH (22:56)
[2020-10-05] MEDS ORDERED: AZITHROMYCIN INJ 500 MG VIAL IV PRN (23:02)
[2020-10-05 23:03] LABS: URINE CREATININE 156.1 mg/dL (22-328)
[2020-10-06] MEDS: AZITHROMYCIN 500 MG in DEXTROSE 5%-WATER 250 ML IV SCH ×2 (02:00→22:19)
[2020-10-06 02:46] LABS: ANION GAP 11 (5-19); BLOOD UREA NITROGEN 61 mg/dL (7-20); CALCIUM 8.5 mg/dL (8.4-10.2); CARBON DIOXIDE 22 mmol/L (22-30); CHLORIDE 98 mmol/L (98-107); GLUCOSE 185 mg/dL (75-110); POTASSIUM 4.4 mmol/L (3.6-5.0)
[2020-10-06 03:04] LABS: HEMATOCRIT 30.1 % (37.9-51.0); HEMOGLOBIN 10.3 g/dL (13.5-17.0); MEAN CORPUSCULAR HEMOGLOBIN 30.7 pg (27.0-33.4); MEAN CORPUSCULAR HGB CONC 34.2 g/dL (32.0-36.0); MEAN CORPUSCULAR VOLUME 90 fl (80-97); PLATELET COUNT 182 10^3/uL (150-450); RED BLOOD COUNT 3.35 10^6/uL (4.35-5.55); RED CELL DISTRIBUTION WIDTH 14.1 % (11.5-14.0); WHITE BLOOD COUNT 25.8 10^3/uL (4.0-10.5)
[2020-10-06 03:14] LABS: ABSOLUTE LYMPHOCYTES# (MANUAL) 1.8 10^3/uL (0.5-4.7); ABSOLUTE MONOCYTES # (MANUAL) 0.5 10^3/uL (0.1-1.4); ANISOCYTOSIS SLIGHT; BASOPHILS % (MANUAL) 0 % (0-2); EOSINOPHILS % (MANUAL) 0 % (0-6); LYMPHOCYTES % (MANUAL) 7 % (13-45); MONOCYTES % (MANUAL) 2 % (3-13); OVALOCYTES SLIGHT; PLATELET COMMENT ADEQUATE; SEGMENTED NEUTROPHILS % (MAN) 91 % (42-78); TOTAL CELLS COUNTED 100
[2020-10-06] MEDS: CEFTRIAXONE 1 GM/D5W RTU 1 GM/50 ML RTUPB IV SCH ×2 (03:19→23:54)
[2020-10-06] MEDS: HEPARIN SOD (PORCINE) 5,000 UNIT/ML 1 ML VIAL SUBCUT SCH ×3 (05:24→22:18)
[2020-10-06] MEDS: PANTOPRAZOLE SODIUM 40 MG TABLET.DR PO SCH (05:24)
[2020-10-06 11:34] LABS: PATH REVIEW PATHOLOGIST REVIEWED
[2020-10-06] MEDS: RINGERS SOLUTION,LACTATED 1,000 ML IV PRN ×2 (12:10→22:21)
[2020-10-06] MEDS ORDERED: CYCLOBENZAPRINE HCL 10 MG TABLET PO PRN (16:06)
[2020-10-06] MEDS ORDERED: PROMETHAZINE HCL 25 MG TABLET PO PRN (16:06)
--- NOTE | 2020-10-06 17:10 | PDOC PROGRESS REPORT ---
Subjective Date:: 10/06/20 Subjective:: ALCIDES BARCLAY is a 70 year old male with a history of liver transplant in 1992, hypertension, GERD and CAD status post CABG now presents with generalized weakness. Patient reports that the past week he has lost appetite, has not been able to do his daily activity. In this morning while he was trying to walk to the bathroom with his right knee gave out and he fell down but he denies any head injury, loss of consciousness, dizziness during the incident. He states that he had cough 2 weeks back and has completed antibiotics for it. His who is at bedside states that he has not been coherent and has been wobbling when he walks. He denies nausea, vomiting, abdominal pain, diarrhea, chest pain, palpitation, weakness of extremity. He denies any recent sick contact hi story. D2 Hospital stay. Patient was seen and examined at bedside. He said he already feels much better today. Denied any chest pain, SOB although still admits to some weakness he is able to ambulate independently. WBC improved from 31 to 25.8. Sodium improved from 129 to 131. He is currently on ceftriaxone and azithromycin. I was able to speak to his in the room and discussed his plan of care. Reason For Visit: PNEUMONIA Physical Exam Vital Signs: Temp Pulse Resp BP Pulse Ox 98.5 F 87 17 116/57 L 95 10/06/20 15:29 10/06/20 15:29 10/06/20 15:29 10/06/20 15:29 10/06/20 15:29 Intake & Output 10/05/20 10/06/20 10/07/20 06:59 06:59 06:59 Intake Total 2970 118 Balance 2970 118 Weight 65.5 kg General appearance: PRESENT: no acute distress, cooperative Head exam: PRESENT: atraumatic, normocephalic Eye exam: PRESENT: EOMI, PERRLA Mouth exam: PRESENT: moist Neck exam: PRESENT: full ROM Respiratory exam: PRESENT: rales, symmetrical, unlabored Cardiovascular exam: PRESENT: RRR, +S1, +S2 GI/Abdominal exam: PRESENT: normal bowel sounds, soft. ABSENT: rebound, tenderness Extremities exam: PRESENT: full ROM Musculoskeletal exam: PRESENT: full ROM Neurological exam: PRESENT: alert, awake, oriented to person, oriented to place, oriented to time, oriented to situation Psychiatric exam: PRESENT: normal mood Skin exam: PRESENT: normal color Results Laboratory Results: 10/06/20 02:19 10/06/20 02:19 10/05/20 10/05/20 10/05/20 18:12 18:12 20:05 WBC 31.5 H* RBC 3.71 L Hgb 11.1 L Hct 33.7 L MCV 91 MCH 29.9 MCHC 32.9 RDW 14.0 Plt Count 213 Seg Neutrophils % Not Reportable VBG pH VBG pCO2 VBG HCO3 VBG Base Excess Sodium 129.8 L Potassium 4.7 Chloride 96 L Carbon Dioxide 26 Anion Gap 8 BUN 71 H Creatinine 2.56 H Est GFR ( Amer) 30 L Glucose 166 H Lactic Acid 1.0 Calcium 8.9 Total Bilirubin 0.7 AST 17 Alkaline Phosphatase 69 Total Protein 5.1 L Albumin 3.1 L Urine Color Urine Appearance Urine pH Ur Specific [place] Urine Protein Urine Glucose (UA) Urine Ketones Urine Blood Urine RBC (Auto) 10/05/20 10/05/20 10/05/20 20:17 20:41 23:03 WBC RBC Hgb Hct MCV MCH MCHC RDW Plt Count Seg Neutrophils % VBG pH 7.34 VBG pCO2 48.0 VBG HCO3 25.4 VBG Base Excess -0.7 Sodium Potassium Chloride Carbon Dioxide Anion Gap BUN Creatinine Est GFR ( Amer) Glucose Lactic Acid 1.1 Calcium Total Bilirubin AST Alkaline Phosphatase Total Protein Albumin Urine Color YELLOW Urine Appearance CLEAR Urine pH 5.0 Ur Specific [place] 1.020 Urine Protein NEGATIVE Urine Glucose (UA) NEGATIVE Urine Ketones NEGATIVE Urine Blood NEGATIVE Urine RBC (Auto) 2 10/06/20 10/06/20 10/06/20 02:19 02:19 02:19 WBC 25.8 H RBC 3.35 L Hgb 10.3 L Hct 30.1 L MCV 90 MCH 30.7 MCHC 34.2 RDW 14.1 H Plt Count 182 Seg Neutrophils % Not Reportable VBG pH VBG pCO2 VBG HCO3 VBG Base Excess Sodium 131.0 L Potassium 4.4 Chloride 98 Carbon Dioxide 22 Anion Gap 11 BUN 61 H Creatinine 1.74 H Est GFR ( Amer) 47 L Glucose 185 H Lactic Acid 1.6 Calcium 8.5 Total Bilirubin AST Alkaline Phosphatase Total Protein Albumin Urine Color Urine Appearance Urine pH Ur Specific [place] Urine Protein Urine Glucose (UA) Urine Ketones Urine Blood Urine RBC (Auto) 10/06/20 11:00 Sputum Gram Stain - Final 10/06/20 11:00 Sputum Sputum Culture - Final 10/05/20 18:12 Troponin I < 0.012 Impressions: Chest X-Ray 10/05/20 19:37 IMPRESSION: Chronic lung changes. Cannot exclude a limited right lower lobe pneumonia superimposed. Ankle X-Ray 10/05/20 20:39 IMPRESSION: 1. No acute findings. Knee X-Ray 10/05/20 20:39 IMPRESSION: No fracture. Assessment and Plan - Diagnosis (1) Sepsis Qualifiers: Sepsis type: sepsis due to unspecified organism Sepsis acute organ dysfu nction status: with acute organ dysfunction Severe sepsis acute organ dys function type: acute renal failure Acute renal failure type: unspecified Severe sepsis shock status: without septic shock Qualified Code(s): A41.9 - Sepsis, unspecified organism; R65.20 - Severe sepsis without septic shock; N17.9 - Acute kidney failure, unspecified Is this a current diagnosis for this admission?: Yes Plan: - improving - Pneumonia as the likely source - BP 116/57 - Awaiting blood and sputum culture to de escalate abx - continue rocephin and azithro (2) Pneumonia Qualifiers: Pneumonia type: due to unspecified organism Laterality: left Lung loc ation: lower lobe of lung Qualified Code(s): J18.9 - Pneumonia, unspecified organism Is this a current diagnosis for this admission?: Yes Plan: -Presented with cough and subjective fever -Chest x-ray significant for right lower lobe pneumonia. received several days of abx past few weeks -Has leukocytosis with left shift - awaiting blood and sputum culture -Continue ceftriaxone and azithromycin (3) JULIAN (acute kidney injury) Is this a current diagnosis for this admission?: Yes Plan: BUN/creatinine on presentation 71/2.56 down to 1.74 Likely prerenal due to hypovolemia Fena 0.2% pre renal however patient is also on HCTZ Continue IV hydration Avoid nephrotoxic's and renally dose medications (4) CAD (coronary artery disease) Qualifiers: Coronary Disease-Associated Artery/Lesion type: bypass graft [place] vs. transplanted heart: [place] heart Associated angina: without angina Qualified Code(s): I25.810 - Atherosclerosis of coronary artery bypass graft(s) without angina pectoris Is this a current diagnosis for this admission?: Yes Plan: Currently patient has no chest pain Continue home medications (5) Status post liver transplant Is this a current diagnosis for this admission?: Yes Plan: Transplant was done in 1992 resumed mycophenolate Currently stable and liver function tests are within the normal limit - Time Time Spent with patient: 25-34 minutes Medications reviewed and adjusted accordingly: Yes Anticipated Discharge Disposition: Home, Self Care Anticipated Discharge Timeframe: to be determined
[2020-10-06] MEDS: MAGNESIUM OXIDE 400 MG TABLET PO SCH (17:50)
--- NOTE | 2020-10-06 17:50 | EKG REPORT ---
SEVERITY:- ABNORMAL ECG - SINUS RHYTHM FIRST DEGREE AV BLOCK INFERIOR INFARCT, AGE INDETERMINATE ANTERIOR INFARCT, OLD : Confirmed by: Shane Gallegos 06-Oct-2020 17:49:26
[2020-10-06] MEDS: TRAMADOL HCL 50 MG TABLET PO PRN (17:54)
[2020-10-06] MEDS ORDERED: (PENDING PHARMACY ID) (Magnesium Oxide [Magnesium Oxide] 400 MG) PO SCH (18:00)
[2020-10-06] MEDS: MYCOPHENOLATE MOFETIL 250 MG CAPSULE PO SCH (19:39)
[2020-10-06 21:51] VITALS: BP 120/81
[2020-10-06] MEDS ORDERED: TRAZODONE HCL 50 MG TABLET PO SCH (22:00)
[2020-10-06] MEDS: PREGABALIN 75 MG CAPSULE PO SCH (22:18)
[2020-10-06] MEDS: FLUTICASONE NASAL SPRAY 50 MCG/SPRY 120 SPRAY/16 GM NASL SCH (22:18)
[2020-10-07] MEDS: HEPARIN SOD (PORCINE) 5,000 UNIT/ML 1 ML VIAL SUBCUT SCH (05:41)
[2020-10-07] MEDS: MYCOPHENOLATE MOFETIL 250 MG CAPSULE PO SCH (05:42)
[2020-10-07] MEDS: PANTOPRAZOLE SODIUM 40 MG TABLET.DR PO SCH (05:42)
[2020-10-07] MEDS: PREGABALIN 75 MG CAPSULE PO SCH (05:42)
[2020-10-07] MEDS: TRAMADOL HCL 50 MG TABLET PO PRN (05:49)
[2020-10-07 06:48] LABS: ABSOLUTE LYMPHOCYTES (AUTO) 1.1 10^3/uL (0.5-4.7); ABSOLUTE MONOCYTES (AUTO) 0.5 10^3/uL (0.1-1.4); ABSOLUTE NEUT (AUTO) 8.8 10^3/uL (1.7-8.2); BASOPHILS % (AUTO) 0.4 % (0-2); EOSINOPHILS % (AUTO) 0.3 % (0-6); HEMATOCRIT 32.4 % (37.9-51.0); LYMPHOCYTES % (AUTO) 10.3 % (13-45); MEAN CORPUSCULAR HEMOGLOBIN 30.5 pg (27.0-33.4); MEAN CORPUSCULAR HGB CONC 33.9 g/dL (32.0-36.0); MEAN CORPUSCULAR VOLUME 90 fl (80-97); MONOCYTES % (AUTO) 4.5 % (3-13); PLATELET COUNT 167 10^3/uL (150-450); RED CELL DISTRIBUTION WIDTH 13.9 % (11.5-14.0); SEGMENTED NEUTROPHILS % (AUTO) 84.5 % (42-78); TOTAL CELLS COUNTED % (AUTO) 100 %; WHITE BLOOD COUNT 10.4 10^3/uL (4.0-10.5)
[2020-10-07 07:14] LABS: ALBUMIN 3.2 g/dL (3.5-5.0); ALKALINE PHOSPHATASE 70 U/L (38-126); ANION GAP 8 (5-19); ASPARTATE AMINO TRANSFERASE 19 U/L (17-59); BILIRUBIN,DIRECT 0.1 mg/dL (0.0-0.4); BILIRUBIN,TOTAL 0.8 mg/dL (0.2-1.3); BLOOD UREA NITROGEN 27 mg/dL (7-20); CALCIUM 9.1 mg/dL (8.4-10.2); CARBON DIOXIDE 30 mmol/L (22-30); CHLORIDE 98 mmol/L (98-107); GLUCOSE 103 mg/dL (75-110); POTASSIUM 4.2 mmol/L (3.6-5.0); TOTAL PROTEIN 5.6 g/dL (6.3-8.2)
[2020-10-07] MEDS ORDERED: ASPIRIN 81 MG TABLET, ENT COATED PO SCH (10:00)
[2020-10-07] MEDS ORDERED: LIPASE PO SCH (10:00)
[2020-10-07] MEDS ORDERED: LISINOPRIL 10 MG TABLET PO SCH (10:00)
[2020-10-07] MEDS ORDERED: PROTEASE PO SCH (10:00)
[2020-10-07] MEDS ORDERED: (PENDING PHARMACY ID) (Lisinopril [Lisinopril] 10 MG) PO SCH (10:00)
[2020-10-07] MEDS ORDERED: AMYLASE PO SCH (10:00)
[2020-10-07] MEDS ORDERED: CETIRIZINE 10 MG TABLET PO SCH (10:00)
[2020-10-07] MEDS ORDERED: CARVEDILOL 3.125 MG TABLET PO SCH (10:00)
[2020-10-07] MEDS: RINGERS SOLUTION,LACTATED 1,000 ML IV PRN (10:30)
[2020-10-07] MEDS: MAGNESIUM OXIDE 400 MG TABLET PO SCH (10:31)
[2020-10-07] MEDS: FLUTICASONE NASAL SPRAY 50 MCG/SPRY 120 SPRAY/16 GM NASL SCH (10:31)
[2020-10-07] MEDS ORDERED: PREGABALIN 75 MG CAPSULE PO ONE (11:22)
[2020-10-07] MEDS ORDERED: INFLUENZA QUAD (6MOS+) 2020-21 VAC 0.5 ML SYR IM ONE (13:30)
[2020-10-07] MEDS ORDERED: NYSTATIN 500000 UNIT/5 ML UDCUP PO SCH (14:00)
--- NOTE | 2020-10-08 07:30 | PDOC DISCHARGE SUMMARY ---
Impression - Admit/DC Date/PCP Admission Date/Primary Care Provider: 10/05/20 22:26 [facility] Discharge Date: 10/07/20 - Discharge Diagnosis (1) Sepsis Is this a current diagnosis for this admission?: Yes (2) Pneumonia Is this a current diagnosis for this admission?: Yes (3) JULIAN (acute kidney injury) Is this a current diagnosis for this admission?: Yes (4) CAD (coronary artery disease) Is this a current diagnosis for this admission?: Yes (5) Status post liver transplant Is this a current diagnosis for this admission?: Yes - Assessment Summary: (1) Sepsis Qualifiers: Sepsis type: sepsis due to unspecified organism Sepsis acute organ dysfunction status: with acute organ dysfunction Severe sepsis acute organ dysfunction type: acute renal failure Acute renal failure type: unspecified Severe sepsis shock status: without septic shock Qualified Code(s): A41.9 - Sepsis, unspecified organism; R65.20 - Severe sepsis without septic shock; N17.9 - Acute kidney failure, unspecified Is this a current diagnosis for this admission?: Yes Plan: - improving - Pneumonia as the likely source - BP 116/57 - Awaiting blood and sputum culture to de escalate abx - continue rocephin and azithro (2) Pneumonia Qualifiers: Pneumonia type: due to unspecified organism Laterality: left Lung location: lower lobe of lung Qualified Code(s): J18.9 - Pneumonia, unspecified organism Is this a current diagnosis for this admission?: Yes Plan: -Presented with cough and subjective fever -Chest x-ray significant for right lower lobe pneumonia. received several days of abx past few weeks -Has leukocytosis with left shift - awaiting blood and sputum culture -Continue ceftriaxone and azithromycin (3) JULIAN (acute kidney injury) Is this a current diagnosis for this admission?: Yes Plan: BUN/creatinine on presentation 71/2.56 down to 1.74 Likely prerenal due to hypovolemia Fena 0.2% pre renal however patient is also on HCTZ Continue IV hydration Avoid nephrotoxic's and renally dose medications (4) CAD (coronary artery disease) Qualifiers: Coronary Disease-Associated Artery/Lesion type: bypass graft [place] vs. transplanted heart: [place] heart Associated angina: without angina Qualified Code(s): I25.810 - Atherosclerosis of coronary artery bypass graft(s) without angina pectoris Is this a current diagnosis for this admission?: Yes Plan: Currently patient has no chest pain Continue home medications (5) Status post liver transplant Is this a current diagnosis for this admission?: Yes Plan: Transplant was done in 1992 resumed mycophenolate Currently stable and liver function tests are within the normal limit - Additional Information Resuscitation Status: Full Code Discharge Diet: As Tolerated Discharge Activity: Activity As Tolerated Referrals: ZEESHAN BOLANOS DO [NO LOCAL MD] - (PROVIDERS OFFICE WILL CALL CONTACT PT) Prescriptions: Levofloxacin [Levaquin 750 mg Tablet] 750 mg PO DAILY 7 Days #7 tab Nystatin [Mycostatin 500,000 Unit/5 ml Susp Udcup] 500,000 unit PO QID 5 Days #20 udc Home Medications: Aspirin [Ecotrin] 81 mg PO DAILY 08/07/20 Carvedilol [Coreg 3.125 mg Tablet] 3.125 mg PO DAILY 08/07/20 Cetirizine HCl [Zyrtec 10 mg Tablet] 10 mg PO DAILY 08/07/20 Cyclobenzaprine HCl [Flexeril 10 mg Tablet] 10 mg PO TIDP PRN 08/07/20 Fluticasone Propionate [Flonase Nasal [place] 50 Mcg/[place] 16 gm] 1 spray NASL BID 08/07/20 Lipase/Protease/Amylase [Creon Dr 3,000 Units Capsule] 1 each PO DAILY 08/07/20 Lisinopril 10 mg PO DAILY 08/07/20 Metformin HCl [Glucophage] 500 mg PO BID 08/07/20 Mycophenolate Mofetil [Cellcept 250 mg Capsule] 1,000 mg PO Q12 08/07/20 Nitroglycerin 0.4 mg SL Q5MP PRN 08/07/20 Omeprazole 20 mg PO BID 08/07/20 Pregabalin [Lyrica 75 mg Capsule] 75 mg PO Q8 08/07/20 Promethazine HCl [Phenergan 25 mg Tablet] 25 mg PO Q6HP PRN 08/07/20 Trazodone HCl 50 mg PO QHS 08/07/20 Magnesium Oxide 400 mg PO BID #20 08/08/20 Ascorbic Acid [Vitamin C 500 mg Tablet] 500 mg PO DAILY 10/06/20 Atorvastatin Calcium [Lipitor 20 mg Tablet] 20 mg PO DAILY 10/06/20 Hydrochlorothiazide [Hydrodiuril 25 mg Tablet] 25 mg PO DAILY 10/06/20 Iron 65 mg PO DAILY 10/06/20 Sodium Chloride [Clever Nasal [place] 44 ml Bottle] 1 spray NASL PRN PRN 10/06/20 Tramadol HCl [Ultram 50 mg Tablet] 100 mg PO Q4HP PRN 10/06/20 Levofloxacin [Levaquin 750 mg Tablet] 750 mg PO DAILY 7 Days #7 tab 10/07/20 Nystatin [Mycostatin 500,000 Unit/5 ml Susp Udcup] 500,000 unit PO QID 5 Days #20 udc 10/07/20 History of Present Illiness History of Present Illness: ALCIDES BARCLAY is a 70 year old male, with a history of liver transplant in 1992, hypertension, GERD and CAD status post CABG now presents with generalized weakness. Patient reports that the past week he has lost appetite, has not been able to do his daily activity. In this morning while he was trying to walk to the bathroom with his right knee gave out and he fell down but he denies any head injury, loss of consciousness, dizziness during the incident. He states that he had cough 2 weeks back and has completed antibiotics for it. His who is at bedside states that he has not been coherent and has been wobbling when he walks. He denies nausea, vomiting, abdominal pain, diarrhea, chest pain, palpitation, weakness of extremity. He denies any recent sick contact history. Hospital Course Hospital Course: D2 Hospital stay. Patient was seen and examined at bedside. He said he already feels much better today. Denied any chest pain, SOB although still admits to some weakness he is able to ambulate independently. WBC improved from 31 to 25.8. Sodium improved from 129 to 131. He is currently on ceftriaxone and azithromycin. I was able to speak to his in the room and discussed his plan of care. Physical Exam Vital Signs: Temp Pulse Resp BP Pulse Ox 98.3 F 94 17 120/81 99 10/07/20 13:09 10/07/20 13:09 10/07/20 13:09 10/07/20 13:09 10/07/20 13:09 Intake & Output 10/07/20 10/08/20 10/09/20 06:59 06:59 06:59 Intake Total 1418 2138 Balance 1418 2138 Weight 65.5 kg General appearance: PRESENT: no acute distress, cooperative Head exam: PRESENT: atraumatic, normocephalic Eye exam: PRESENT: EOMI, PERRLA Mouth exam: PRESENT: moist Neck exam: PRESENT: full ROM Respiratory exam: PRESENT: crackles, rales, symmetrical, unlabored Cardiovascular exam: PRESENT: RRR, +S1, +S2 Pulses: PRESENT: +2 pedal pulses bilateral GI/Abdominal exam: PRESENT: normal bowel sounds, soft. ABSENT: tenderness Extremities exam: PRESENT: full ROM Musculoskeletal exam: PRESENT: full ROM Neurological exam: PRESENT: alert, oriented to person, oriented to place, oriented to time, oriented to situation Psychiatric exam: PRESENT: normal mood Skin exam: PRESENT: normal color Results Laboratory Results: WBC 10.4 10^3/uL (4.0-10.5) 10/07/20 05:09 RBC 3.60 10^6/uL (4.35-5.55) L 10/07/20 05:09 Hgb 11.0 g/dL (13.5-17.0) L 10/07/20 05:09 Hct 32.4 % (37.9-51.0) L 10/07/20 05:09 MCV 90 fl (80-97) 10/07/20 05:09 MCH 30.5 pg (27.0-33.4) 10/07/20 05:09 MCHC 33.9 g/dL (32.0-36.0) 10/07/20 05:09 RDW 13.9 % (11.5-14.0) 10/07/20 05:09 Plt Count 167 10^3/uL (150-450) 10/07/20 05:09 Lymph % (Auto) 10.3 % (13-45) L 10/07/20 05:09 [place] % (Auto) 4.5 % (3-13) 10/07/20 05:09 Eos % (Auto) 0.3 % (0-6) 10/07/20 05:09 Baso % (Auto) 0.4 % (0-2) 10/07/20 05:09 Absolute Neuts (auto) 8.8 10^3/uL (1.7-8.2) H 10/07/20 05:09 Absolute Lymphs (auto) 1.1 10^3/uL (0.5-4.7) 10/07/20 05:09 Absolute Monos (auto) 0.5 10^3/uL (0.1-1.4) 10/07/20 05:09 Absolute Eos (auto) 0.0 10^3/uL (0.0-0.6) 10/07/20 05:09 Absolute Basos (auto) 0.0 10^3/uL (0.0-0.2) 10/07/20 05:09 Total Counted 100 10/06/20 02:19 Seg Neutrophils % 84.5 % (42-78) H 10/07/20 05:09 Seg Neuts % (Manual) 91 % (42-78) H 10/06/20 02:19 Band Neutrophils % 2 % (3-5) L 10/05/20 18:12 Lymphocytes % (Manual) 7 % (13-45) L 10/06/20 02:19 Monocytes % (Manual) 2 % (3-13) L 10/06/20 02:19 Eosinophils % (Manual) 0 % (0-6) 10/06/20 02:19 Basophils % (Manual) 0 % (0-2) 10/06/20 02:19 Abs Neuts (Manual) 23.5 10^3/uL (1.7-8.2) H 10/06/20 02:19 Abs Lymphs (Manual) 1.8 10^3/uL (0.5-4.7) 10/06/20 02:19 Abs Monocytes (Manual) 0.5 10^3/uL (0.1-1.4) 10/06/20 02:19 Absolute Eos (Manual) 0.0 10^3/uL (0.0-0.6) 10/06/20 02:19 Abs Basophils (Manual) 0.0 10^3/uL (0.0-0.2) 10/06/20 02:19 Platelet Comment ADEQUATE 10/06/20 02:19 Anisocytosis SLIGHT 10/06/20 02:19 Ovalocytes SLIGHT 10/06/20 02:19 PT 13.5 SEC (11.4-15.4) 10/05/20 18:12 INR 1.01 10/05/20 18:12 VBG pH 7.34 (7.30-7.42) 10/05/20 20:41 VBG pCO2 48.0 mmHg (35-63) 10/05/20 20:41 VBG HCO3 25.4 mmol/L (20-32) 10/05/20 20:41 VBG Base Excess -0.7 mmol/L 10/05/20 20:41 Sodium 136.4 mmol/L (137-145) L 10/07/20 05:09 Potassium 4.2 mmol/L (3.6-5.0) 10/07/20 05:09 Chloride 98 mmol/L (98-107) 10/07/20 05:09 Carbon Dioxide 30 mmol/L (22-30) 10/07/20 05:09 Anion Gap 8 (5-19) 10/07/20 05:09 BUN 27 mg/dL (7-20) H 10/07/20 05:09 Creatinine 0.94 mg/dL (0.52-1.25) 10/07/20 05:09 Est GFR ( Amer) > 60 (>60) 10/07/20 05:09 Est GFR (MDRD) Non-Af > 60 (>60) 10/07/20 05:09 Glucose 103 mg/dL (75-110) 10/07/20 05:09 POC Glucose 140 mg/dL (70-110) H 10/05/20 20:20 Lactic Acid 1.6 mmol/L (0.7-2.1) 10/06/20 02:19 Calcium 9.1 mg/dL (8.4-10.2) 10/07/20 05:09 Total Bilirubin 0.8 mg/dL (0.2-1.3) 10/07/20 05:09 Direct Bilirubin 0.1 mg/dL (0.0-0.4) 10/07/20 05:09 Neonat Total Bilirubin Not Reportable 10/07/20 05:09 Neonat Direct Bilirubin Not Reportable 10/07/20 05:09 Neonat Indirect Bili Not Reportable 10/07/20 05:09 AST 19 U/L (17-59) 10/07/20 05:09 ALT 9 U/L (<50) 10/07/20 05:09 Alkaline Phosphatase 70 U/L (38-126) 10/07/20 05:09 Troponin I < 0.012 ng/mL 10/05/20 18:12 Total Protein 5.6 g/dL (6.3-8.2) L 10/07/20 05:09 Albumin 3.2 g/dL (3.5-5.0) L 10/07/20 05:09 Urine Color YELLOW 10/05/20 20:17 Urine Appearance CLEAR 10/05/20 20:17 Urine pH 5.0 (5.0-9.0) 10/05/20 20:17 Ur Specific [place] 1.020 10/05/20 20:17 Urine Protein NEGATIVE mg/dL (NEGATIVE) 10/05/20 20:17 Urine Glucose (UA) NEGATIVE mg/dL (NEGATIVE) 10/05/20 20:17 Urine Ketones NEGATIVE mg/dL (NEGATIVE) 10/05/20 20:17 Urine Blood NEGATIVE (NEGATIVE) 10/05/20 20:17 Urine Nitrite (Reflex) NEGATIVE (NEGATIVE) 10/05/20 20:17 Urine Bilirubin NEGATIVE (NEGATIVE) 10/05/20 20:17 Urine Urobilinogen NEGATIVE mg/dL (<2.0) 10/05/20 20:17 Leukocyte Esterase Rfl NEGATIVE (NEGATIVE) 10/05/20 20:17 Urine RBC (Auto) 2 /HPF 10/05/20 20:17 Urine WBC (Reflex) 1 /HPF 10/05/20 20:17 Squamous Epi Cells Auto <1 /HPF 10/05/20 20:17 Urine Mucus (Auto) RARE /LPF 10/05/20 20:17 Urine Creatinine 156.1 mg/dL (22-328) 10/05/20 20:17 Urine Sodium 20 mmol/L (30-90) L 10/05/20 20:17 Urine Ascorbic Acid NEGATIVE (NEGATIVE) 10/05/20 20:17 Slides for Path Review PATHOLOGIST REVIEWED 10/05/20 18:12 10/05/20 18:12 Troponin I < 0.012 Impressions: Chest X-Ray 10/05/20 19:37 IMPRESSION: Chronic lung changes. Cannot exclude a limited right lower lobe pneumonia superimposed. Ankle X-Ray 10/05/20 20:39 IMPRESSION: 1. No acute findings. Knee X-Ray 10/05/20 20:39 IMPRESSION: No fracture. Plan Plan of Treatment: antibiotcs for 7 more days follow up with PCP Time Spent: Less than 30 Minutes Stroke Is this a Stroke Patient?: No Acute Heart Failure Is this a Heart Failure Patient?: No
== END 2020-10-07 15:02 | disposition home or self-care (01) | DRG 871 ==
LOC: ER 17:57 → EH 22:26 → 4W 23:32
PROVIDERS: ADMIT Student in an Organized Health Care Education/Training Program; ATTEND Internal Medicine
DX: A41.9 Sepsis, unspecified organism (principal); J18.9 Pneumonia, unspecified organism; N17.9 Acute kidney failure, unspecified; I25.810 Atherosclerosis of coronary artery bypass graft(s) without angina pectoris; Z94.4 Liver transplant status; R65.20 Severe sepsis without septic shock; I25.10 Atherosclerotic heart disease of native coronary artery without angina pectoris; E78.5 Hyperlipidemia, unspecified; K21.9 Gastro-esophageal reflux disease without esophagitis; W19.XXXA Unspecified fall, initial encounter; E11.22 Type 2 diabetes mellitus with diabetic chronic kidney disease; N18.9 Chronic kidney disease, unspecified; I12.9 Hypertensive chronic kidney disease with stage 1 through stage 4 chronic kidney disease, or unspecified chronic kidney disease; I95.9 Hypotension, unspecified; E78.00 Pure hypercholesterolemia, unspecified; Z23 Encounter for immunization; Z79.899 Other long term (current) drug therapy; Z79.84 Long term (current) use of oral hypoglycemic drugs; Z79.82 Long term (current) use of aspirin; Z95.1 Presence of aortocoronary bypass graft; Z87.891 Personal history of nicotine dependence; Z88.6 Allergy status to analgesic agent; Z88.8 Allergy status to other drugs, medicaments and biological substances; Z95.5 Presence of coronary angioplasty implant and graft
CPT/HCPCS: 36415; 71045; 80048; 80053; 81001; 82570; 82803; 82962; 83605; 84300; 84484; 85025; 85610; 87040; 87205; 93005; 93010; 96361; 96365; 99285; J0456; J0692; J0696; J1644; J3370; J3490; J7060; J7120; J7517

== ENCOUNTER 2020-10-17 12:32 | Inpatient (IN) | payer OTHER, MEDICARE ==
[2020-10-17] MEDS ORDERED: NORMAL SALINE 1000 ML 1,000 ML IV ONE ×2 (13:16→14:20)
--- NOTE | 2020-10-17 13:20 | ER Document Report ---
ED General - General Chief Complaint: General Weakness Stated Complaint: GENERALIZED WEAKNESS Time Seen by Provider: 10/17/20 12:49 Primary Care Provider: KAYLEY,KISHAN [Primary Care Provider] - Follow up as needed Notes: HPI: 70-year-old male who presents today with secondary to extreme fatigue that has been worsening over the last 2 to 3 days. Patient has had supposedly no fevers, minimal cough, no vomiting or diarrhea. No chest or abdominal pain. Patient was just discharged on the secondary to pneumonia in the left lower lobe, acute kidney injury, sepsis, and is a status post liver transplant patien t. ROS: See HPI All other review of systems reviewed and otherwise negative Reviewed vital signs and nursing note as charted by RN. PHYSICAL EXAM: CONSTITUTIONAL: Alert and oriented and responds appropriately to questions. Well-appearing; well-nourished HEAD: Normocephalic; atraumatic EYES: PERRL; Conjunctivae clear, sclerae non-icteric ENT: Normal nose; no rhinorrhea; moist mucous membranes; pharynx without lesions noted NECK: Supple without meningismus; non-tender; no cervical lymphadenopathy, no masses CARD: Regular rate and rhythm; no murmurs; symmetric distal pulses RESP: Normal chest excursion without splinting or tachypnea; breath sounds clear and equal bilaterally; no wheezes, no rhonchi, no rales ABD/GI: Normal bowel sounds; non-distended; soft, non-tender BACK: The back appears normal and is non-tender to palpation EXT: Normal ROM in all joints; non-tender to palpation; no edema SKIN: No acute lesions noted NEURO: CN 2-12 intact; 5/5 bilateral upper and lower extremity strength with sensation intact to light touch PSYCH: The patient's mood and manner are appropriate. Grooming and personal hygiene are appropriate. - Related Data Allergies/Adverse Reactions: amitriptyline Allergy (Verified 08/06/20 23:23) gabapentin Allergy (Verified 08/06/20 23:23) iodine Allergy (Verified 08/06/20 23:23) nortriptyline Allergy (Verified 08/06/20 23:23) topiramate [From Topamax] Allergy (Verified 08/06/20 23:23) Past Medical History - Social History Smoking Status: Unknown if Ever Smoked Family History: Reviewed & Not Pertinent - Past Medical History Cardiac Medical History: Reports: Hx Coronary Artery Disease, Hx Hypercholesterolemia, Hx Hypertension Pulmonary Medical History: Denies: Hx Asthma Endocrine Medical History: Reports: Hx Diabetes Mellitus Type 2 Renal/ Medical History: Reports: Hx Renal Insufficiency Psychiatric Medical History: Denies: Hx Depression Past Surgical History: Reports: Hx Cardiac Surgery, Hx Open Heart Surgery, Other - Liver transplant - Immunizations Immunizations up to date: Yes Hx Diphtheria, Pertussis, Tetanus Vaccination: Yes Physical Exam - Vital signs Vitals: Resp Pulse Ox 22 H 86 L 10/17/20 12:41 10/17/20 12:41 Course - Re-evaluation Re-evalutation: 10/17/20 13:19 Given the above history and physical examination, initial blood pressure as recorded, liter of fluid has been started. We will initiate the sepsis protocol. Patient has been afebrile. Coronavirus has been ordered. Cardiac panel and an x-ray of the chest is pending. I would like to assess for the possibility of repeat infection, cardiac dysfunction, or other acute abnormality. 10/17/20 14:22 Labs as recorded. Patient appears to have a repeat of his kidney failure that is actually worse than previous admission. Troponin is slightly elevated but the patient still denies any chest pain. Aspirin provided. Awaiting x-ray of the chest and urine analysis. Second liter of fluid has been provided. EKG shows a heart rate of 84, first-degree block, PVCs present. No obvious ST elevation or depression. Q waves in lead III. Previous EKG shows no appreciable change. 10/17/20 15:45 Urinalysis still still pending. Fluids have been provided. Still no pain or shortness of breath. X-ray as recorded showing a nonspecific groundglass bilateral lower lung opacities. I did speak to the hospitalist who would like to hold on antibiotics until she assesses. I believe this is reasonable. Patient will be admitted for further evaluation and treatment. - Vital Signs Vital signs: Temp Pulse Resp BP Pulse Ox 98.2 F 17 92/52 L 99 10/17/20 12:43 10/17/20 15:16 10/17/20 15:16 10/17/20 15:16 - Laboratory Result Diagrams: 10/17/20 13:01 10/17/20 13:01 Laboratory results interpreted by me: 10/17/20 10/17/20 13:01 13:01 WBC 11.8 H RBC 3.23 L Hgb 10.2 L Hct 30.2 L Lymph % (Auto) 6.4 L [place] % (Auto) 1.4 L Absolute Neuts (auto) 10.9 H Seg Neutrophils % 91.9 H Sodium 131.8 L Potassium 5.7 H BUN 63 H Creatinine 3.09 H Est GFR ( Amer) 24 L Est GFR (MDRD) Non-Af 20 L Calcium 8.3 L Total Protein 5.0 L Albumin 2.9 L Critical Care Note - Critical Care Note Total time excluding time spent on procedures (mins): 45 Discharge - Discharge Clinical Impression: Hyperkalemia, Bilateral pulmonary infiltrates on chest x-ray Acute kidney failure Qualifiers: Acute renal failure type: unspecified Qualified Code(s): N17.9 - Acute kidney failure, unspecified Condition: Fair Disposition: ADMITTED INPATIENT Admitting Provider: Yolie (Hospitalist) Unit Admitted: Telemetry [facility] [Primary Care [facility]] - Follow up as needed
[2020-10-17 13:50] LABS: ABSOLUTE LYMPHOCYTES (AUTO) 0.8 10^3/uL (0.5-4.7); ABSOLUTE MONOCYTES (AUTO) 0.2 10^3/uL (0.1-1.4); ABSOLUTE NEUT (AUTO) 10.9 10^3/uL (1.7-8.2); BASOPHILS % (AUTO) 0.3 % (0-2); HEMATOCRIT 30.2 % (37.9-51.0); HEMOGLOBIN 10.2 g/dL (13.5-17.0); LYMPHOCYTES % (AUTO) 6.4 % (13-45); MEAN CORPUSCULAR HEMOGLOBIN 31.4 pg (27.0-33.4); MEAN CORPUSCULAR HGB CONC 33.6 g/dL (32.0-36.0); MEAN CORPUSCULAR VOLUME 93 fl (80-97); MONOCYTES % (AUTO) 1.4 % (3-13); PLATELET COUNT 166 10^3/uL (150-450); RED BLOOD COUNT 3.23 10^6/uL (4.35-5.55); RED CELL DISTRIBUTION WIDTH 13.4 % (11.5-14.0); SEGMENTED NEUTROPHILS % (AUTO) 91.9 % (42-78); TOTAL CELLS COUNTED % (AUTO) 100 %; WHITE BLOOD COUNT 11.8 10^3/uL (4.0-10.5)
[2020-10-17 13:58] LABS: ALBUMIN 2.9 g/dL (3.5-5.0); ALKALINE PHOSPHATASE 53 U/L (38-126); ANION GAP 12 (5-19); ASPARTATE AMINO TRANSFERASE 22 U/L (17-59); BILIRUBIN,DIRECT 0.3 mg/dL (0.0-0.4); BILIRUBIN,TOTAL 0.7 mg/dL (0.2-1.3); BLOOD UREA NITROGEN 63 mg/dL (7-20); CALCIUM 8.3 mg/dL (8.4-10.2); CARBON DIOXIDE 22 mmol/L (22-30); CHLORIDE 98 mmol/L (98-107); CREATINE KINASE 75 U/L (55-170); GLUCOSE 105 mg/dL (75-110); POTASSIUM 5.7 mmol/L (3.6-5.0)
[2020-10-17 14:07] LABS: CREATINE KINASE MB 2.89 ng/mL (<4.55)
[2020-10-17 14:08] LABS: TROPONIN I 0.128 ng/mL
[2020-10-17] MEDS ORDERED: ASPIRIN 325 MG TABLET PO ONE (14:23)
--- NOTE | 2020-10-17 14:43 | RADIOLOGY REPORT (SQ) ---
EXAM DESCRIPTION: CHEST SINGLE VIEW IMAGES COMPLETED DATE/TIME: 10/17/2020 2:35 pm REASON FOR STUDY: 19; sob COMPARISON: 10/05/2020 TECHNIQUE: Single frontal radiographic view of the chest acquired. NUMBER OF VIEWS: One view. LIMITATIONS: None. FINDINGS: LUNGS AND PLEURA: No pneumothorax. Persistent interstitial -ground-glass opacities in bot h lung bases. Persistent small left Pleural effusion. MEDIASTINUM AND HILAR STRUCTURES: Stable. HEART AND VASCULAR STRUCTURES: Stable. BONES: No acute findings. HARDWARE: Sternotomy. OTHER: No other significant finding. IMPRESSION: Persistent interstitial -ground-glass opacities in both lung bases. Persistent small le ft Pleural effusion. TECHNICAL DOCUMENTATION: JOB ID: [id number] 2010 [employer]- All Rights Reserved Reading location - IP/workstation name: [email or web address]
[2020-10-17 16:11] LABS: APPEARANCE,URINE CLEAR; BILIRUBIN,URINE NEGATIVE (NEGATIVE); COLOR,URINE YELLOW; GLUCOSE, URINE NEGATIVE (NEGATIVE); KETONES,URINE NEGATIVE (NEGATIVE); LEUKOCYTE ESTERASE,URINE NEGATIVE (NEGATIVE); NITRITE,URINE NEGATIVE (NEGATIVE); PROTEIN,URINE NEGATIVE (NEGATIVE); URINE SPECIFIC GRAVITY 1.023; UROBILINOGEN,URINE NEGATIVE mg/dL (<2.0)
[2020-10-17] MEDS ORDERED: NORMAL SALINE 1000 ML 500 ML IV ONE (17:39)
[2020-10-17] MEDS ORDERED: MAG HYDROX/AL HYDROX/SIMETH SUSP 30 ML UDCUP PO PRN (18:08)
[2020-10-17] MEDS ORDERED: ONDANSETRON HCL INJ/PF 4 MG/2 ML SDV IV PRN (18:08)
[2020-10-17] MEDS ORDERED: ACETAMINOPHEN 325 MG TABLET PO PRN (18:08)
[2020-10-17] MEDS ORDERED: ALBUTEROL SULFATE 0.083% NEB 2.5 MG/3 ML AMPUL NEB PRN (18:08)
[2020-10-17] MEDS ORDERED: GLUCAGON,HUMAN RECOMB 1 MG INJ IM PRN (18:38)
[2020-10-17] MEDS ORDERED: DEXTROSE 50%-WATER 25 GM/50 ML DISP.SYRIN IV PRN ×2 (18:38)
[2020-10-17] MEDS ORDERED: DEXTROSE 40% GEL 15 GM TUBE PO PRN ×2 (18:38)
--- NOTE | 2020-10-17 18:54 | PDOC H&P ---
History of Present Illness Admission Date/PCP: 10/17/20 16:[facility] Patient complains of: Generalized weakness History of Present Illness: ALCIDES BARCLAY is a 70 year old male with a past medical history significant for remote liver transplant (1998), CABG (2011), CKD, hypertension, hyperlipidemia, DM 2, and GERD, who was recently discharged from our facility following treatment for community-acquired pneumonia. Patient has been in his usual state of health until today when he increasingly fatigued and weak with a presyncopal event while sitting up in bed. Patient's states that he slept in later than his usual and when she went to wake him, he sat but then slumped to the side. She states that he maintained consciousness but had profound weakness and was unable to sit up or stand up from the bed independently which prompted them to call EMS. Per EMS report, upon arrival, he was found to have a systolic blood pressure in the 60s. Evaluation in the emergency department revealed hypotension (77/46) that has improved to 100/47 following 3 L IVF. Remaining vital signs are stable. Further evaluation revealed mild leukocytosis (WBC is 11.8), baseline anemia (hemoglobin 10.2/hematocrit 30.2), acute kidney injury (creatinine 3.09/BUN 63) with hyponatremia (131.8) hyperkalemia (5.7), and an elevated troponin to 0.128. Chest x-ray revealed persistent interstitial groundglass opacities bilaterally with a small right pleural effusion. EKG shows a first-degree AV block, right bundle branch block, both present on prior EKGs. No ST segment changes. Patient was referred to the hospitalist service for further evaluation management of the above-stated complaints and findings. Past Medical History Cardiac Medical History: Reports: Coronary Artery Disease, Hyperlipidema, Hypertension Denies: Congestive Heart Failure Pulmonary Medical History: Denies: Asthma, Chronic Obstructive Pulmonary Disease (COPD) EENT Medical History: Reports: None Neurological Medical History: Reports: None Endocrine Medical History: Reports: Diabetes Mellitus Type 2 Denies: Hypothyroidism Renal/ Medical History: Reports: None Malignancy Medical History: Reports: None GI Medical History: Reports: Other - liver transplant Psychiatric Medical History: Denies: Depression Hematology: Reports: Anemia Infectious Medical History: Reports: None Past Surgical History Past Surgical History: Reports: Other - Liver transplant Social History Information Source: Patient Lives with: Spouse/Significant other Smoking Status: Unknown if Ever Smoked Frequency of Alcohol Use: None Hx Recreational Drug Use: No Drugs: None Hx Prescription Drug Abuse: No - Advance Directive Resuscitation Status: Full Code Family History Family History: Reviewed & Not Pertinent Parental Family History Reviewed: Yes Children Family History Reviewed: Yes Sibling(s) Family History Reviewed.: Yes Medication/Allergy Home Medications: Aspirin [Ecotrin] 81 mg PO DAILY 08/07/20 Carvedilol [Coreg 3.125 mg Tablet] 3.125 mg PO DAILY 08/07/20 Cetirizine HCl [Zyrtec 10 mg Tablet] 10 mg PO DAILY 08/07/20 Cyclobenzaprine HCl [Flexeril 10 mg Tablet] 10 mg PO TIDP PRN 08/07/20 Fluticasone Propionate [Flonase Nasal Duson 50 Mcg/Duson 16 gm] 1 spray NASL BID 08/07/20 Lipase/Protease/Amylase [Creon Dr 3,000 Units Capsule] 1 each PO DAILY 08/07/20 Lisinopril 10 mg PO DAILY 08/07/20 Metformin HCl [Glucophage] 500 mg PO BID 08/07/20 Mycophenolate Mofetil [Cellcept 250 mg Capsule] 1,000 mg PO Q12 08/07/20 Nitroglycerin 0.4 mg SL Q5MP PRN 08/07/20 Omeprazole 20 mg PO BID 08/07/20 Pregabalin [Lyrica 75 mg Capsule] 75 mg PO Q8 08/07/20 Promethazine HCl [Phenergan 25 mg Tablet] 25 mg PO Q6HP PRN 08/07/20 Trazodone HCl 50 mg PO QHS 08/07/20 Magnesium Oxide 400 mg PO BID #20 08/08/20 Ascorbic Acid [Vitamin C 500 mg Tablet] 500 mg PO DAILY 10/06/20 Atorvastatin Calcium [Lipitor 20 mg Tablet] 20 mg PO DAILY 10/06/20 Hydrochlorothiazide [Hydrodiuril 25 mg Tablet] 25 mg PO DAILY 10/06/20 Iron 65 mg PO DAILY 10/06/20 Sodium Chloride [[place] Nasal Duson 44 ml Bottle] 1 spray NASL PRN PRN 10/06/20 Tramadol HCl [Ultram 50 mg Tablet] 100 mg PO Q4HP PRN 10/06/20 Levofloxacin [Levaquin 750 mg Tablet] 750 mg PO DAILY 7 Days #7 tab 10/07/20 Nystatin [Mycostatin 500,000 Unit/5 ml Susp Udcup] 500,000 unit PO QID 5 Days #20 udc 10/07/20 Allergies/Adverse Reactions: amitriptyline Allergy (Verified 08/06/20 23:23) gabapentin Allergy (Verified 08/06/20 23:23) iodine Allergy (Verified 08/06/20 23:23) nortriptyline Allergy (Verified 08/06/20 23:23) topiramate [From Topamax] Allergy (Verified 08/06/20 23:23) Review of Systems Constitutional: PRESENT: fatigue, weakness. ABSENT: chills, fever(s), headache(s), weight gain, weight loss Eyes: ABSENT: visual disturbances Ears: ABSENT: hearing changes Cardiovascular: ABSENT: chest pain, dyspnea on exertion, edema, orthropnea, palpitations Respiratory: ABSENT: cough, hemoptysis Gastrointestinal: ABSENT: abdominal pain, constipation, diarrhea, hematemesis, hematochezia, nausea, vomiting Genitourinary: ABSENT: dysuria, hematuria Musculoskeletal: ABSENT: joint swelling Integumentary: ABSENT: rash, wounds Neurological: PRESENT: other - near syncope. ABSENT: abnormal gait, abnormal speech, confusion, dizziness, focal weakness, syncope Psychiatric: ABSENT: anxiety, depression, homidical ideation, suicidal ideation Endocrine: ABSENT: cold intolerance, heat intolerance, polydipsia, polyuria Hematologic/Lymphatic: ABSENT: easy bleeding, easy bruising Physical Exam Vital Signs: Temp Pulse Resp BP Pulse Ox 98.2 F 16 100/47 L 93 10/17/20 12:43 10/17/20 17:46 10/17/20 17:46 10/17/20 17:46 Intake & Output 10/16/20 10/17/20 10/18/20 06:59 06:59 06:59 Intake Total 1999 Balance 1999 Weight 63.503 kg General appearance: PRESENT: no acute distress, cooperative, thin, well- developed, well-nourished Head exam: PRESENT: atraumatic, normocephalic Eye exam: PRESENT: conjunctiva pink, EOMI, PERRLA. ABSENT: scleral icterus Mouth exam: PRESENT: moist, tongue midline Teeth exam: PRESENT: poor dentation Neck exam: ABSENT: carotid bruit, JVD, lymphadenopathy, thyromegaly Respiratory exam: PRESENT: clear to auscultation [place], symmetrical, unlabored, other - room air. ABSENT: rales, rhonchi, wheezes Cardiovascular exam: PRESENT: RRR. ABSENT: diastolic murmur, rubs, systolic murmur Pulses: PRESENT: normal dorsalis pedis pul Vascular exam: PRESENT: normal capillary refill GI/Abdominal exam: PRESENT: normal bowel sounds, soft. ABSENT: distended, guarding, mass, organolmegaly, rebound, tenderness Rectal exam: PRESENT: deferred Extremities exam: PRESENT: full ROM. ABSENT: calf tenderness, clubbing, pedal edema Neurological exam: PRESENT: alert, awake, oriented to person, oriented to place, oriented to time, oriented to situation, CN II-XII grossly intact, other - slightly forgetful and repetative; not normal per . ABSENT: motor sensory deficit Psychiatric exam: PRESENT: appropriate affect, normal mood. ABSENT: homicidal ideation, suicidal ideation Skin exam: PRESENT: dry, intact, warm. ABSENT: cyanosis, rash Results Laboratory Results: 10/17/20 13:01 10/17/20 13:01 10/17/20 10/17/20 10/17/20 13:01 13:01 13:01 WBC 11.8 H RBC 3.23 L Hgb 10.2 L Hct 30.2 L MCV 93 MCH 31.4 MCHC 33.6 RDW 13.4 Plt Count 166 Seg Neutrophils % 91.9 H Sodium 131.8 L Potassium 5.7 H Chloride 98 Carbon Dioxide 22 Anion Gap 12 BUN 63 H Creatinine 3.09 H Est GFR ( Amer) 24 L Glucose 105 Lactic Acid 1.8 Calcium 8.3 L Total Bilirubin 0.7 AST 22 Alkaline Phosphatase 53 Total Protein 5.0 L Albumin 2.9 L Urine Color Urine Appearance Urine pH Ur Specific [place] Urine Protein Urine Glucose (UA) Urine Ketones Urine Blood Urine Nitrite Ur Leukocyte Esterase Urine WBC (Auto) Urine RBC (Auto) 10/17/20 15:52 WBC RBC Hgb Hct MCV MCH MCHC RDW Plt Count Seg Neutrophils % Sodium Potassium Chloride Carbon Dioxide Anion Gap BUN Creatinine Est GFR ( Amer) Glucose Lactic Acid Calcium Total Bilirubin AST Alkaline Phosphatase Total Protein Albumin Urine Color YELLOW Urine Appearance CLEAR Urine pH 5.0 Ur Specific [place] 1.023 Urine Protein NEGATIVE Urine Glucose (UA) NEGATIVE Urine Ketones NEGATIVE Urine Blood NEGATIVE Urine Nitrite NEGATIVE Ur Leukocyte Esterase NEGATIVE Urine WBC (Auto) 1 Urine RBC (Auto) 0 10/17/20 10/17/20 10/17/20 13:01 13:01 16:24 Creatine Kinase 75 CK-MB (CK-2) 2.89 Troponin I 0.128 0.397 Impressions: Chest X-Ray 10/17/20 14:21 IMPRESSION: Persistent interstitial -ground-glass opacities in both lung bases. Persistent small left Pleural effusion. Assessment and Plan - Diagnosis (1) Acute kidney failure Qualifiers: Acute renal failure type: unspecified Qualified Code(s): N17.9 - Acute kidney failure, unspecified Is this a current diagnosis for this admission?: Yes Plan: Cr 3.09, BUN 63 Likely prerenal. Unclear if due to poor fluid intake or secondary to neph rotoxic medications and hypotension. Recently discharged on a course of full dose Levaquin. Home medications include metformine, HCTZ, lisinopril, lyrica Patient is admitted to [facility] Has already received 3L IVF by ED provider/EMS. Continue gentle IVF. Avoid nephrotoxic medications. Strict I&Os Trend chemistries. (2) Elevated troponin Is this a current diagnosis for this admission?: Yes Plan: Likely troponin leak secondary to acute kidney injury and hypotension. Patient denies chest discomfort (all classic and atypical symptoms). EKG showed first-degree AV block, right bundle branch, no ST segment changes. Chest x-ray benign. Patient had records with him; echocardiogram and nuclear stress test done as an outpatient at Dr. Cardona's office in January 2020 were both normal. LVEF 55%, grade 1 diastolic dysfunction, no pulmonary hypertension or valvular defects. The patient is not established with a assistant buyer; Dr. Cardona's visit was for preop testing only. Discussed the patient's case with Dr. Rock, he agrees that this appears to be demand mismatch ischemia in the setting of acute kidney injury. We will continue to trend troponins. Admitted to [facility]; monitor on continuous cardiac telemetry. Daily aspirin and statin therapy. (3) Hyperkalemia Is this a current diagnosis for this admission?: Yes Plan: Secondary to #1. Receiving IV fluids. Monitor on telemetry. Follow-up chemistries. (4) Hyponatremia Is this a current diagnosis for this admission?: Yes Plan: Sodium 131.8; possibly chronic. It appears that he has had mild hyponatremia during his previous two admissions. However, he has also resumed his HCTZ since discharge (instructed to do so by his PCP). IVF as above. Hold HCTZ. Liberalize dietary sodium. Trend chemistries. (5) Hypotension Qualifiers: Hypotension type: unspecified hypotension type Qualified Code(s): I95.9 - Hypotension, unspecified Is this a current diagnosis for this admission?: Yes Plan: Likely multifactorial secondary to acute kidney injury and polypharmacy. Patient is prescribed carvedilol lisinopril, and hydrochlorothiazide for blood pressure. He is also receiving Flexeril, Lyrica, Phenergan, and trazodone. Continue IV fluids as above. Holding medications and resuming slowly as blood pressure allows and sym ptomology dictates. Resisted vital signs every shift. Fall precautions. (6) Diabetes Qualifiers: Diabetes mellitus type: type 2 Diabetes mellitus mcfp insulin use: without mcfp use Is this a current diagnosis for this admission?: Yes Plan: Holding oral medications while admitted. We will check A1c with a.m. lab work. Patient is placed on a consistent carb diet. Accu-Cheks before meals and at bedtime with Humalog for sliding scale coverage. Hypoglycemia protocol in place. Registered dietitian healthcare educator consulted. (7) Status post liver transplant Is this a current diagnosis for this admission?: Yes Plan: Status post transplant in 1992. Continue home dose CellCept. (8) CAD (coronary artery disease) Qualifiers: Coronary Disease-Associated Artery/Lesion type: bypass graft [place] vs. transplanted heart: [place] heart Associated angina: without angina Qualified Code(s): I25.810 - Atherosclerosis of coronary artery bypass graft(s) without angina pectoris Is this a current diagnosis for this admission?: Yes Plan: Continue daily aspirin and statin therapy. Hold antihypertensives secondary to hypotension. - Time Time Spent with patient: 35 or more minutes Medications reviewed and adjusted accordingly: Yes Anticipated Discharge Disposition: Home, Self Care Anticipated Discharge Timeframe: within 72 hours
--- NOTE | 2020-10-17 18:57 | EKG REPORT ---
SEVERITY:- ABNORMAL ECG - SINUS OR ECTOPIC ATRIAL RHYTHM VENTRICULAR PREMATURE COMPLEX FIRST DEGREE AV BLOCK PROBABLE INFERIOR INFARCT, AGE INDETERMINATE ABNRM R PROG, CONSIDER ASMI OR LEAD PLACEMENT : Confirmed by: Millie Alonso MD 17-Oct-2020 18:57:06
[2020-10-17 19:01] LABS: URINE AMPHETAMINES SCREEN NEGATIVE; URINE BARBITURATES SCREEN NEGATIVE; URINE BENZODIAZEPINES SCREEN NEGATIVE; URINE COCAINE SCREEN NEGATIVE; URINE MARIJUANA (THC) SCREEN NEGATIVE; URINE METHADONE SCREEN NEGATIVE; URINE PHENCYCLIDINE SCREEN NEGATIVE
[2020-10-17 19:27] LABS: ANION GAP 10 (5-19); BLOOD UREA NITROGEN 60 mg/dL (7-20); CALCIUM 7.7 mg/dL (8.4-10.2); CARBON DIOXIDE 19 mmol/L (22-30); CHLORIDE 104 mmol/L (98-107); GLUCOSE 102 mg/dL (75-110); POTASSIUM 5.1 mmol/L (3.6-5.0)
[2020-10-17] MEDS: NORMAL SALINE 1000 ML 1,000 ML IV PRN (20:19)
[2020-10-17] MEDS: INSULIN LISPRO 100 UNIT/ML 3 ML VIAL SUBCUT SCH ×2 (21:30→21:39)
[2020-10-17] MEDS: ATORVASTATIN CALCIUM 20 MG TABLET PO SCH (21:31)
[2020-10-18 00:54] LABS: ANION GAP 9 (5-19); BLOOD UREA NITROGEN 57 mg/dL (7-20); CALCIUM 7.6 mg/dL (8.4-10.2); CARBON DIOXIDE 19 mmol/L (22-30); CHLORIDE 107 mmol/L (98-107); GLUCOSE 95 mg/dL (75-110); POTASSIUM 4.7 mmol/L (3.6-5.0)
[2020-10-18] MEDS: NORMAL SALINE 1000 ML 1,000 ML IV PRN ×3 (05:02→21:07)
[2020-10-18] MEDS: PANTOPRAZOLE SODIUM 20 MG TABLET.DR PO SCH (05:03)
[2020-10-18 06:43] LABS: ABSOLUTE EOSINOPHILS # (AUTO) 0.1 10^3/uL (0.0-0.6); ABSOLUTE LYMPHOCYTES (AUTO) 0.8 10^3/uL (0.5-4.7); ABSOLUTE MONOCYTES (AUTO) 0.2 10^3/uL (0.1-1.4); ABSOLUTE NEUT (AUTO) 6.2 10^3/uL (1.7-8.2); BASOPHILS % (AUTO) 0.3 % (0-2); EOSINOPHILS % (AUTO) 0.9 % (0-6); HEMATOCRIT 27.8 % (37.9-51.0); HEMOGLOBIN 9.3 g/dL (13.5-17.0); LYMPHOCYTES % (AUTO) 10.6 % (13-45); MEAN CORPUSCULAR HEMOGLOBIN 30.9 pg (27.0-33.4); MEAN CORPUSCULAR HGB CONC 33.3 g/dL (32.0-36.0); MEAN CORPUSCULAR VOLUME 93 fl (80-97); MONOCYTES % (AUTO) 2.8 % (3-13); PLATELET COUNT 136 10^3/uL (150-450); RED BLOOD COUNT 2.99 10^6/uL (4.35-5.55); SEGMENTED NEUTROPHILS % (AUTO) 85.4 % (42-78); TOTAL CELLS COUNTED % (AUTO) 100 %; WHITE BLOOD COUNT 7.2 10^3/uL (4.0-10.5)
--- NOTE | 2020-10-18 07:29 | EKG REPORT ---
SEVERITY:- ABNORMAL ECG - SINUS RHYTHM MOBITZ I AV BLOCK ([place]KEBACH) PROBABLE INFERIOR INFARCT, AGE INDETERMINATE PROBABLE ANTEROSEPTAL INFARCT, OLD : Confirmed by: Low Krueger MD 18-Oct-2020 07:29:05
[2020-10-18 07:36] LABS: ANION GAP 11 (5-19); BLOOD UREA NITROGEN 55 mg/dL (7-20); CALCIUM 7.7 mg/dL (8.4-10.2); CARBON DIOXIDE 17 mmol/L (22-30); CHLORIDE 108 mmol/L (98-107); GLUCOSE 82 mg/dL (75-110); POTASSIUM 4.9 mmol/L (3.6-5.0)
[2020-10-18] MEDS: INSULIN LISPRO 100 UNIT/ML 3 ML VIAL SUBCUT SCH ×4 (08:19→21:05)
[2020-10-18] MEDS: ENOXAPARIN SODIUM INJ 30 MG/0.3 ML DISP.SYRIN SUBCUT SCH (09:43)
[2020-10-18] MEDS: ASPIRIN 81 MG TABLET, CHEWABLE PO SCH (09:43)
[2020-10-18] MEDS: DOCUSATE SODIUM 100 MG CAPSULE PO SCH (09:43)
--- NOTE | 2020-10-18 09:52 | PDOC CONSULTATION ---
Consultation Consult Date: 10/18/20 Attending physician:: KYLIE AMAYA Provider Consulted: ADÁN MICHAEL Consult reason:: Elevated troponin History of Present Illness Admission Date/PCP: 10/17/20 16:[facility] Patient complains of: Fatigue History of Present Illness: ALCIDES BARCLAY is a 70 year old male 70-year-old male with the following active problems 1. Coronary artery disease 2. CABG-2011 3. Chronic knee disease 4. Systemic hypertension 5. Dyslipidemia 6. Diabetes mellitus 7. Liver transplant-1998 Patient has been admitted with a diagnosis of pneumonia and acute kidney injury. He probably was volume depleted and also had a presyncopal event. Since admission to the hospital there is no report of chest pain. His cardiac bio markers were elevated up to 1.19 troponin. No chest pain whatsoever. He has been started on antibiotics and also fluid resuscitation with improvement in blood pressure. Is suspected to have Covid pneumonia but the diagnosis has not been confirmed. Patient reports that he had stress test and echocardiogram which were performed in January of this year prior to his appointment with pain management at [facility]. These tests were unremarkable and did not show evidence. Ischemia. He also had preserved ejection fraction and no significant valve lesion. Patient has not established with any older worker specialist except for the one he has at the [facility]. No familial illnesses reported Review of systems is positive for presyncope, feeling poorly, negative for chest pain. Positive for dyspnea and also positive for cough. Fatigue is reported. Full 11 review systems was asked. Pertinent positives noted here and in the HPI all other systems negative neck negative Surgical history Liver transplantation 1998 CABG 2011 Past Medical History Cardiac Medical History: Reports: Coronary Artery Disease, Hyperlipidema, Hypertension Denies: Congestive Heart Failure Pulmonary Medical History: Denies: Asthma, Chronic Obstructive Pulmonary Disease (COPD) EENT Medical History: Reports: None Neurological Medical History: Reports: None Endocrine Medical History: Reports: Diabetes Mellitus Type 2 Denies: Hypothyroidism Renal/ Medical History: Reports: None Malignancy Medical History: Reports: None GI Medical History: Reports: Other - liver transplant Psychiatric Medical History: Denies: Depression Hematology: Reports: Anemia Infectious Medical History: Reports: None Past Surgical History Past Surgical History: Reports: Other - Liver transplant Social History Lives with: Spouse/Significant other Smoking Status: Never Smoker Frequency of Alcohol Use: None Hx Recreational Drug Use: No Drugs: None Hx Prescription Drug Abuse: No - Advance Directive Resuscitation Status: Full Code Family History Family History: Reviewed & Not Pertinent Parental Family History Reviewed: Yes - No familial illnesses Children Family History Reviewed: NA Sibling(s) Family History Reviewed.: NA Medication/Allergy Home Medications: Aspirin [Ecotrin] 81 mg PO DAILY 08/07/20 Carvedilol [Coreg 3.125 mg Tablet] 3.125 mg PO DAILY 08/07/20 Cetirizine HCl [Zyrtec 10 mg Tablet] 10 mg PO DAILY 08/07/20 Cyclobenzaprine HCl [Flexeril 10 mg Tablet] 10 mg PO TIDP PRN 08/07/20 Fluticasone Propionate [Flonase Nasal [place] 50 Mcg/[place] 16 gm] 1 spray NASL BID 08/07/20 Lipase/Protease/Amylase [Creon Dr 3,000 Units Capsule] 1 each PO DAILY 08/07/20 Lisinopril 10 mg PO DAILY 08/07/20 Metformin HCl [Glucophage] 500 mg PO BID 08/07/20 Mycophenolate Mofetil [Cellcept 250 mg Capsule] 1,000 mg PO Q12 08/07/20 Nitroglycerin 0.4 mg SL Q5MP PRN 08/07/20 Omeprazole 20 mg PO BID 08/07/20 Pregabalin [Lyrica 75 mg Capsule] 75 mg PO Q8 08/07/20 Promethazine HCl [Phenergan 25 mg Tablet] 25 mg PO Q6HP PRN 08/07/20 Trazodone HCl 50 mg PO QHS 08/07/20 Magnesium Oxide 400 mg PO BID #20 08/08/20 Ascorbic Acid [Vitamin C 500 mg Tablet] 500 mg PO DAILY 10/06/20 Atorvastatin Calcium [Lipitor 20 mg Tablet] 20 mg PO DAILY 10/06/20 Hydrochlorothiazide [Hydrodiuril 25 mg Tablet] 25 mg PO DAILY 10/06/20 Iron 65 mg PO DAILY 10/06/20 Sodium Chloride [Rincon Nasal [place] 44 ml Bottle] 1 spray NASL PRN PRN 10/06/20 Tramadol HCl [Ultram 50 mg Tablet] 100 mg PO Q4HP PRN 10/06/20 Levofloxacin [Levaquin 750 mg Tablet] 750 mg PO DAILY 7 Days #7 tab 10/07/20 Nystatin [Mycostatin 500,000 Unit/5 ml Susp Udcup] 500,000 unit PO QID 5 Days #20 [facility] [place]20 Allergies/Adverse Reactions: amitriptyline Allergy (Verified 08/06/20 23:23) gabapentin Allergy (Verified 08/06/20 23:23) iodine Allergy (Verified 08/06/20 23:23) nortriptyline Allergy (Verified 08/06/20 23:23) topiramate [From Topamax] Allergy (Verified 08/06/20 23:23) Review of Systems Constitutional: PRESENT: as per HPI, fatigue Ears: PRESENT: as per HPI Cardiovascular: ABSENT: as per HPI, chest pain, dyspnea on exertion, edema, orthropnea, palpitations, other Respiratory: PRESENT: cough, dyspnea Neurological: PRESENT: other. ABSENT: as per HPI, abnormal gait, abnormal m ovements, abnormal speech, confusion, convulsions, dizziness, focal weakness, frequent falls, lack of coordination, memory loss, numbness, paresthesias, restless legs, syncope, tingling, tremor(s), vertigo, weakness Endocrine: ABSENT: as per HPI, cold intolerance, flushing, heat intolerance, menstrual abnormalities, polydipsia, polyphagia, polyuria, other Physical Exam Vital Signs: Temp Pulse Resp BP Pulse Ox 97.7 F 72 18 93/48 L 95 10/18/20 07:26 10/18/20 07:22 10/18/20 07:22 10/18/20 07:22 10/18/20 07:22 Intake & Output 10/17/20 10/18/20 10/19/20 06:59 06:59 06:59 Intake Total 3560 Output Total 600 Balance 2960 Weight 63.5 kg General appearance: PRESENT: no acute distress, cooperative, well-developed, well-nourished Head exam: PRESENT: atraumatic, normocephalic Eye exam: PRESENT: EOMI Respiratory exam: PRESENT: decreased breath sounds, prolonged expiratory phas, symmetrical, unlabored Cardiovascular exam: PRESENT: RRR, +S1, +S2, other - Healed sternotomy Pulses: PRESENT: normal radial pulses Rectal exam: PRESENT: deferred Neurological exam: PRESENT: alert, awake, oriented to person, oriented to place, oriented to time, oriented to situation Psychiatric exam: PRESENT: appropriate affect Skin exam: PRESENT: dry, intact Results Laboratory Results: 10/18/20 06:02 10/18/20 06:02 10/17/20 10/17/20 10/17/20 13:01 13:01 13:01 WBC 11.8 H RBC 3.23 L Hgb 10.2 L Hct 30.2 L MCV 93 MCH 31.4 MCHC 33.6 RDW 13.4 Plt Count 166 Seg Neutrophils % 91.9 H Sodium 131.8 L Potassium 5.7 H Chloride 98 Carbon Dioxide 22 Anion Gap 12 BUN 63 H Creatinine 3.09 H Est GFR ( Amer) 24 L Glucose 105 Lactic Acid 1.8 Calcium 8.3 L Total Bilirubin 0.7 AST 22 Alkaline Phosphatase 53 Total Protein 5.0 L Albumin 2.9 L Urine Color Urine Appearance Urine pH Ur Specific [place] Urine Protein Urine Glucose (UA) Urine Ketones Urine Blood Urine Nitrite Ur Leukocyte Esterase Urine WBC (Auto) Urine RBC (Auto) 10/17/20 10/17/20 10/18/20 15:52 16:24 00:22 WBC RBC Hgb Hct MCV MCH MCHC RDW Plt Count Seg Neutrophils % Sodium 133.2 L 134.5 L Potassium 5.1 H 4.7 Chloride 104 107 Carbon Dioxide 19 L 19 L Anion Gap 10 9 BUN 60 H 57 H Creatinine 2.75 H 2.31 H Est GFR ( Amer) 28 L 34 L Glucose 102 95 Lactic Acid Calcium 7.7 L 7.6 L Total Bilirubin AST Alkaline Phosphatase Total Protein Albumin Urine Color YELLOW Urine Appearance CLEAR Urine pH 5.0 Ur Specific [place] 1.023 Urine Protein NEGATIVE Urine Glucose (UA) NEGATIVE Urine Ketones NEGATIVE Urine Blood NEGATIVE Urine Nitrite NEGATIVE Ur Leukocyte Esterase NEGATIVE Urine WBC (Auto) 1 Urine RBC (Auto) 0 10/18/20 10/18/20 06:02 06:02 WBC 7.2 RBC 2.99 L Hgb 9.3 L Hct 27.8 L MCV 93 MCH 30.9 MCHC 33.3 RDW 14.0 Plt Count 136 L Seg Neutrophils % 85.4 H Sodium 135.6 L Potassium 4.9 Chloride 108 H Carbon Dioxide 17 L Anion Gap 11 BUN 55 H Creatinine 1.93 H Est GFR ( Amer) 42 L Glucose 82 Lactic Acid Calcium 7.7 L Total Bilirubin AST Alkaline Phosphatase Total Protein Albumin Urine Color Urine Appearance Urine pH Ur Specific [place] Urine Protein Urine Glucose (UA) Urine Ketones Urine Blood Urine Nitrite Ur Leukocyte Esterase Urine WBC (Auto) Urine RBC (Auto) 10/17/20 13:01 Blood Blood Culture (PCR) - Final 10/17/20 10/17/20 10/17/20 13:01 13:01 16:24 Creatine Kinase 75 CK-MB (CK-2) 2.89 Troponin I 0.128 0.397 10/17/20 10/18/20 10/18/20 22:05 00:22 06:02 Creatine Kinase CK-MB (CK-2) Troponin I 0.991 1.120 1.190 EKG Comments: Twelve-lead EKG 10/17/2020. 1313. Independently viewed by me., Low voltage. Sinus rhythm, 84 bpm, first-degree AV block, PVC, inferior infarct, poor R wave progression, QTC is 407 ms Chest x-ray 10/17/2020. Persistent interstitial groundglass opacities in both lung thomas small left pleural effusion Twelve-lead EKG 10/18/2020 1:41 AM. Reviewed by me. Sinus rhythm, 81 bpm, Mobitz 1 Wenckebach, inferior infarct, poor R wave progression, Twelve-lead EKG 10/18/2020. 9:17 AM. Independently viewed by me. Sinus rhythm, Mobitz 1 AV block., Inferior infarct, poor R wave progression, QTC is 451 ms White blood cell count 11.8 10/17/2020 Serum creatinine 1.93 Troponin 0 0.128 0.397 0.991 1.12 1.19 Impressions: Chest X-Ray 10/17/20 14:21 IMPRESSION: Persistent interstitial -ground-glass opacities in both lung bases. Persistent small left Pleural effusion. Assessment & Plan - Diagnosis (1) NSTEMI (non-ST elevated myocardial infarction) Is this a current diagnosis for this admission?: Yes Plan: Non-ST segment elevation myocardial infarction in the setting of sepsis and hypotension as well as JULIAN Patient is not experiencing any chest pain Elevated cardiac biomarkers are probably reflection of severe if infection Underlying obstructive coronary artery disease probably exist but recent stress test was negative for ischemia indicating low risk. Would continue to trend the troponin for at least 2 more blood draws 4 hours apart. If the troponin curve flattens and if the patient continues to be chest pain-free would not recommend systemic heparinization. Would continue guideline directed medical therapy for coronary artery disease including aspirin statin. Would resume beta-blockers if blood pressure would permit. Continue statin therapy also. At the moment given absence chest pain and given recent negative stress test ischemia evaluation would not be indicated. (2) CAD (coronary artery disease) Qualifiers: Coronary Disease-Associated Artery/Lesion type: bypass graft [place] vs. transplanted heart: [place] heart Associated angina: without angina Qualified Code(s): I25.810 - Atherosclerosis of coronary artery bypass graft(s) without angina pectoris Is this a current diagnosis for this admission?: Yes Plan: Coronary artery disease status post CABG 2011 No ischemic symptoms Continue guideline directed medical therapy Recent imaging studies which were performed in 2019 did not suggest ischemia and showed preserved left ventricular ejection fraction and no wall motion abnormality and no significant valve lesion. This is as reported me. Given this would refrain from additional testing at this point especially since patient seems to be chest pain-free (3) Acute kidney failure Qualifiers: Acute renal failure type: unspecified Qualified Code(s): N17.9 - Acute kidney failure, unspecified Is this a current diagnosis for this admission?: Yes Plan: Likely multifactorial Due to combination of sepsis and volume depletion Watch blood pressure Watch creatinine Avoid nephrotoxic agents I suspect as the infection improves his renal function should respond to volume repletion
--- NOTE | 2020-10-18 12:15 | EKG REPORT ---
SEVERITY:- ABNORMAL ECG - SINUS RHYTHM MOBITZ I AV BLOCK (WENCKEBACH) PROBABLE INFERIOR INFARCT, AGE INDETERMINATE CONSIDER ANTEROSEPTAL INFARCT : Confirmed by: Low Krueger MD 18-Oct-2020 12:14:56
--- NOTE | 2020-10-18 16:25 | PDOC PROGRESS REPORT ---
Subjective Date:: 10/18/20 Subjective:: ALCIDES BARCLAY is a 70 year old male with a past medical history significant for remote liver transplant (1998), CABG (2011), CKD, hypertension, hyperlipidemia, DM 2, and GERD, who was admitted 10/17/2020 with acute kidney injury, hyperkalemia, and elevated troponin. Patient was seen on afternoon rounds. He was found resting in bed, comfortably, on room air. He reports that he is feeling well today. He states that he has been ambulatory in the room without difficulty (nursing confirms patient has been ambulatory to the restroom independently). He denies all complaints and is looking forward to discharge home soon as possible. He specifically denies fever, chills, chest pain, palpitations, dyspnea, orthopnea, cough, abdominal pain, nausea vomiting and diarrhea. He has no questions or concerns at this time. No concerns per nursing. Reason For Visit: JULIAN,HYPERKALEMIA Physical Exam Vital Signs: Temp Pulse Resp BP Pulse Ox 97.3 F 76 18 123/80 92 10/18/20 11:03 10/18/20 14:00 10/18/20 11:03 10/18/20 11:03 10/18/20 11:03 Intake & Output 10/17/20 10/18/20 10/19/20 06:59 06:59 06:59 Intake Total 3560 452 Output Total 600 Balance 2960 452 Weight 63.5 kg General appearance: PRESENT: no acute distress, cooperative, thin, well- developed, well-nourished Head exam: PRESENT: atraumatic, normocephalic Eye exam: PRESENT: conjunctiva pink, EOMI, PERRLA. ABSENT: scleral icterus Mouth exam: PRESENT: moist, tongue midline Teeth exam: PRESENT: poor dentation Neck exam: ABSENT: carotid bruit, JVD, lymphadenopathy, thyromegaly Respiratory exam: PRESENT: clear to auscultation [place], symmetrical, unlabored, other - Room air. ABSENT: rales, rhonchi, wheezes Cardiovascular exam: PRESENT: RRR. ABSENT: diastolic murmur, rubs, systolic murmur Vascular exam: PRESENT: normal capillary refill Extremities exam: PRESENT: full ROM. ABSENT: calf tenderness, clubbing, pedal edema Musculoskeletal exam: PRESENT: ambulatory Neurological exam: PRESENT: alert, awake, oriented to person, oriented to place, oriented to time, oriented to situation, CN II-XII grossly intact. ABSENT: motor sensory deficit Psychiatric exam: PRESENT: appropriate affect, normal mood. ABSENT: homicidal ideation, suicidal ideation Skin exam: PRESENT: dry, intact, warm. ABSENT: cyanosis, rash Results Laboratory Results: 10/18/20 06:02 10/18/20 06:02 10/17/20 10/17/20 10/18/20 15:52 16:24 00:22 WBC RBC Hgb Hct MCV MCH MCHC RDW Plt Count Seg Neutrophils % Sodium 133.2 L 134.5 L Potassium 5.1 H 4.7 Chloride 104 107 Carbon Dioxide 19 L 19 L Anion Gap 10 9 BUN 60 H 57 H Creatinine 2.75 H 2.31 H Est GFR ( Amer) 28 L 34 L Glucose 102 95 Calcium 7.7 L 7.6 L TSH Urine Color YELLOW Urine Appearance CLEAR Urine pH 5.0 Ur Specific [place] 1.023 Urine Protein NEGATIVE Urine Glucose (UA) NEGATIVE Urine Ketones NEGATIVE Urine Blood NEGATIVE Urine Nitrite NEGATIVE Ur Leukocyte Esterase NEGATIVE Urine WBC (Auto) 1 Urine RBC (Auto) 0 10/18/20 10/18/20 10/18/20 06:02 06:02 06:02 WBC 7.2 RBC 2.99 L Hgb 9.3 L Hct 27.8 L MCV 93 MCH 30.9 MCHC 33.3 RDW 14.0 Plt Count 136 L Seg Neutrophils % 85.4 H Sodium 135.6 L Potassium 4.9 Chloride 108 H Carbon Dioxide 17 L Anion Gap 11 BUN 55 H Creatinine 1.93 H Est GFR ( Amer) 42 L Glucose 82 Calcium 7.7 L TSH 0.73 Urine Color Urine Appearance Urine pH Ur Specific [place] Urine Protein Urine Glucose (UA) Urine Ketones Urine Blood Urine Nitrite Ur Leukocyte Esterase Urine WBC (Auto) Urine RBC (Auto) 10/17/20 13:01 Blood Blood Culture (PCR) - Final 10/17/20 10/17/20 10/17/20 13:01 13:01 16:24 Creatine Kinase 75 CK-MB (CK-2) 2.89 Troponin I 0.128 0.397 10/17/20 10/18/20 10/18/20 22:05 00:22 06:02 Creatine Kinase CK-MB (CK-2) Troponin I 0.991 1.120 1.190 Impressions: Chest X-Ray 10/17/20 14:21 IMPRESSION: Persistent interstitial -ground-glass opacities in both lung bases. Persistent small left Pleural effusion. Assessment and Plan - Diagnosis (1) Acute kidney failure Qualifiers: Acute renal failure type: unspecified Qualified Code(s): N17.9 - Acute kidney failure, unspecified Is this a current diagnosis for this admission?: Yes Plan: Improved; Cr 3.09/BUN 63-> 1.93/55 Likely prerenal. Unclear if due to poor fluid intake or secondary to nephrotoxic medications and hypotension. Recently discharged on a course of full dose Levaquin. Patient states that he was ecently instructed by a nurse at the [facility] to resume his HCTZ r/t pedal edema. Home medications include metformine, HCTZ, lisinopril, lyrica Per I&Os; patient is positive ~3.5 L Patient is admitted to [facility] Continue gentle IVF. Avoid nephrotoxic medications. Strict I&Os Follow up chemistry. (2) Elevated troponin Is this a current diagnosis for this admission?: Yes Plan: Now trending down; Troponin 0.128-> 0.397-> 0.991-> 1.120-> 1.190-> 0.819 Likely troponin leak secondary to acute kidney injury and hypotension. Patient denies chest discomfort (all classic and atypical symptoms). EKG showed first-degree AV block, right bundle branch, no ST segment changes. Chest x-ray benign. Patient had records with him; echocardiogram and nuclear stress test done as an outpatient at Dr. Cardona's office in January 2020 were both normal. LVEF 55%, grade 1 diastolic dysfunction, no pulmonary hypertension or valvular defects. The patient is not established with a prop sawyer; Dr. Cardona's visit was for preop testing only. Admitted to [facility]; monitor on continuous cardiac telemetry. Cardiology consulted. Appreciate Dr. Elliott's recommendations. Will continue daily aspirin and statin therapy. Resume beta henna once blood pressure allows. (3) Hyponatremia Is this a current diagnosis for this admission?: Yes Plan: Improved; Sodium 131.8-> 135.6 It appears that he has had mild hyponatremia during his previous two admissions. However, he has also resumed his HCTZ since discharge (instructed to do so by his PCP). IVF as above. Hold HCTZ. Liberalize dietary sodium. Follow up chemistry (4) Hypotension Qualifiers: Hypotension type: unspecified hypotension type Qualified Code(s): I95.9 - Hypotension, unspecified Is this a current diagnosis for this admission?: Yes Plan: Improved; though continues to be labile. BP 93/48 this am, 123/80 this afternoon. Likely multifactorial secondary to acute kidney injury and polypharmacy. Patient is prescribed carvedilol lisinopril, and hydrochlorothiazide for blood pressure. He is also receiving Flexeril, Lyrica, Phenergan, and trazodone. Continue IV fluids as above. Holding medications and resuming slowly as blood pressure allows and symptomology dictates. Orthostatic vital signs every shift. Consider Midodrine Fall precautions. 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 Patient is placed on a consistent carb diet. Accu-Cheks before meals and at bedtime with Humalog for sliding scale coverage. Hypoglycemia protocol in place. Registered dietitian staff educator consulted. Would recommending d/c without oral diabetic medications w/ strong counselling on diet controlled approach. Follow-up with PCP for further monitoring and medication recommendations. (6) CAD (coronary artery disease) Qualifiers: Coronary Disease-Associated Artery/Lesion type: bypass graft [place] vs. transplanted heart: [place] heart Associated angina: without angina Qualified Code(s): I25.810 - Atherosclerosis of coronary artery bypass graft(s) without angina pectoris Is this a current diagnosis for this admission?: Yes Plan: Continue daily aspirin and statin therapy. Hold antihypertensives secondary to hypotension. (7) Status post liver transplant Is this a current diagnosis for this admission?: Yes Plan: Status post transplant in 1992. Continue home dose CellCept. (8) Hyperkalemia Is this a current diagnosis for this admission?: Yes Plan: Resolved. Secondary to #1. (9) Bacteremia Is this a current diagnosis for this admission?: Yes Plan: Blood cultures are growing gram-positive rods in 1 of 4 bottles; likely co ntaminant. Leukocytosis has resolved. Patient remains afebrile. Urinalysis negative for UTI. Chest x-ray shows bilateral groundglass opacities, however, he is recovering from a community-acquired pneumonia and I do not suspect that he has a worsening infectious process. Will hold on antibiotics at this time. (10) Suspected 2019-nCoV infection Is this a current diagnosis for this admission?: Yes Plan: ED provide obtained COVID testing r/t CXR results. Patient complains of fatigue and generalized weakness. Otherwise no signs/symptoms. COVID pending As needed nebulizer treatments. Encourage pulmonary toilet. Isolation precautions. - Time Time Spent with patient: 25-34 minutes Medications reviewed and adjusted accordingly: Yes Anticipated Discharge Disposition: Home, Self Care Anticipated Discharge Timeframe: within 24 hours
[2020-10-18] MEDS: FLUTICASONE NASAL SPRAY 50 MCG/SPRY 120 SPRAY/16 GM NASL SCH (17:45)
[2020-10-18] MEDS ORDERED: IRON 18 MG PO SCH (18:00)
[2020-10-18] MEDS: ATORVASTATIN CALCIUM 20 MG TABLET PO SCH (21:05)
[2020-10-18] MEDS: MYCOPHENOLATE MOFETIL 250 MG CAPSULE PO SCH (21:11)
[2020-10-18] MEDS ORDERED: PREGABALIN 100 MG CAPSULE PO SCH (22:00)
[2020-10-19] MEDS ORDERED: TRAMADOL HCL 50 MG TABLET PO ONE (04:00)
[2020-10-19] MEDS: PANTOPRAZOLE SODIUM 20 MG TABLET.DR PO SCH (05:45)
[2020-10-19] MEDS: NORMAL SALINE 1000 ML 1,000 ML IV PRN (06:17)
[2020-10-19 06:53] LABS: ANION GAP 8 (5-19); CALCIUM 8.4 mg/dL (8.4-10.2); CARBON DIOXIDE 23 mmol/L (22-30); CHLORIDE 109 mmol/L (98-107); GLUCOSE 120 mg/dL (75-110)
[2020-10-19 06:57] LABS: HEMATOCRIT 29.8 % (37.9-51.0); HEMOGLOBIN 9.7 g/dL (13.5-17.0); MEAN CORPUSCULAR HEMOGLOBIN 29.7 pg (27.0-33.4); MEAN CORPUSCULAR HGB CONC 32.6 g/dL (32.0-36.0); MEAN CORPUSCULAR VOLUME 91 fl (80-97); PLATELET COUNT 154 10^3/uL (150-450); RED BLOOD COUNT 3.27 10^6/uL (4.35-5.55); RED CELL DISTRIBUTION WIDTH 13.9 % (11.5-14.0); WHITE BLOOD COUNT 5.1 10^3/uL (4.0-10.5)
[2020-10-19 07:19] LABS: BLOOD UREA NITROGEN 27 mg/dL (7-20)
[2020-10-19] MEDS ORDERED: LIPASE PO SCH (08:00)
[2020-10-19] MEDS ORDERED: [UNRECOGNIZED DRUG - OTHER] PO SCH (08:00)
[2020-10-19] MEDS ORDERED: PREGABALIN 100 MG CAPSULE PO SCH (08:00)
[2020-10-19] MEDS ORDERED: PROTEASE PO SCH (08:00)
[2020-10-19] MEDS ORDERED: AMYLASE PO SCH (08:00)
[2020-10-19] MEDS: INSULIN LISPRO 100 UNIT/ML 3 ML VIAL SUBCUT SCH ×2 (08:45→12:29)
[2020-10-19] MEDS: ENOXAPARIN SODIUM INJ 30 MG/0.3 ML DISP.SYRIN SUBCUT SCH (09:21)
[2020-10-19] MEDS: TRAMADOL HCL 50 MG TABLET PO SCH ×2 (09:21→15:09)
[2020-10-19] MEDS: DOCUSATE SODIUM 100 MG CAPSULE PO SCH (09:23)
[2020-10-19] MEDS: ASPIRIN 81 MG TABLET, CHEWABLE PO SCH (09:23)
[2020-10-19] MEDS: FLUTICASONE NASAL SPRAY 50 MCG/SPRY 120 SPRAY/16 GM NASL SCH (09:23)
[2020-10-19] MEDS: MYCOPHENOLATE MOFETIL 250 MG CAPSULE PO SCH (09:24)
--- NOTE | 2020-10-19 09:38 | PDOC PROGRESS REPORT ---
Subjective Date:: 10/19/20 Subjective:: Patient was seen and examined. He is resting comfortably in bed. No chest pain is endorsed. His cardiac troponin is indeed abnormal but has begun to decline in number. Reason For Visit: JULIAN,HYPERKALEMIA Physical Exam Vital Signs: Temp Pulse Resp BP Pulse Ox 98.2 F 85 18 121/60 98 10/19/20 07:58 10/19/20 07:19 10/19/20 07:19 10/19/20 07:19 10/19/20 07:19 Intake & Output 10/18/20 10/19/20 10/20/20 06:59 06:59 06:59 Intake Total 3560 3336 Output Total 600 Balance 2960 3336 Weight 63.5 kg 63.5 kg General appearance: PRESENT: no acute distress, cooperative, well-developed, well-nourished Head exam: PRESENT: atraumatic, normocephalic Eye exam: PRESENT: conjunctiva pink, EOMI Mouth exam: PRESENT: moist Respiratory exam: PRESENT: decreased breath sounds, symmetrical, unlabored Cardiovascular exam: PRESENT: RRR, +S1, +S2 Pulses: PRESENT: normal radial pulses GI/Abdominal exam: PRESENT: soft Rectal exam: PRESENT: deferred Musculoskeletal exam: PRESENT: normal inspection Neurological exam: PRESENT: alert, awake, oriented to person, oriented to place, oriented to time Skin exam: PRESENT: dry, intact Results Laboratory Results: 10/19/20 05:31 10/19/20 05:31 10/18/20 10/19/20 10/19/20 06:02 05:31 05:31 WBC 5.1 RBC 3.27 L Hgb 9.7 L Hct 29.8 L MCV 91 MCH 29.7 MCHC 32.6 RDW 13.9 Plt Count 154 Sodium 139.9 Potassium 4.0 Chloride 109 H Carbon Dioxide 23 Anion Gap 8 BUN 27 H D Creatinine 1.06 Est GFR ( Amer) > 60 Glucose 120 H Calcium 8.4 TSH 0.73 10/17/20 13:01 Blood Blood Culture (PCR) - Final 10/17/20 13:01 Blood Blood Culture - Final Bacillus Sp. Not Anthracis 10/17/20 10/17/20 10/17/20 13:01 13:01 16:24 Creatine Kinase 75 CK-MB (CK-2) 2.89 Troponin I 0.128 0.397 10/17/20 10/18/20 10/18/20 22:05 00:22 06:02 Creatine Kinase CK-MB (CK-2) Troponin I 0.991 1.120 1.190 10/18/20 10/19/20 15:00 05:31 Creatine Kinase CK-MB (CK-2) Troponin I 0.819 1.070 EKG Comments: White blood cell count is 5.1 today Hemoglobin is 9.7 Creatinine today is 1.06 down from 3.09 at presentation. Cardiac troponin yesterday was 1.19 and declined to 0.819 but increased to 1.07 Impressions: Chest X-Ray 10/17/20 14:21 IMPRESSION: Persistent interstitial -ground-glass opacities in both lung bases. Persistent small left Pleural effusion. Assessment & Plan - Diagnosis (1) NSTEMI (non-ST elevated myocardial infarction) Is this a current diagnosis for this admission?: Yes Plan: Likely demand mediated myocardial ischemia in the setting of sepsis and infection with superimposed JULIAN rather than acute coronary syndrome Patient does not endorse any chest pain and no diagnostic EKG changes His troponin levels have continued to decline but have not completely. Would check 1 more level to make sure that it is going down. Continue to treat infection and also supportive care. (2) CAD (coronary artery disease) Qualifiers: Coronary Disease-Associated Artery/Lesion type: bypass graft [place] vs. transplanted heart: [place] heart Associated angina: without angina Qualified Code(s): I25.810 - Atherosclerosis of coronary artery bypass graft(s) without angina pectoris Is this a current diagnosis for this admission?: Yes Plan: Status post CABG in 2012 Recent myocardial perfusion imaging study without ischemia as reported to me. Echocardiogram with preserved left ventricular ejection fraction and no significant valve lesion Continue guideline directed medical therapy including aspirin and statin. Beta-henna therapy is also essential but limited in account of infection, volume depletion and hypotension. (3) Acute kidney failure Qualifiers: Acute renal failure type: unspecified Qualified Code(s): N17.9 - Acute kidney failure, unspecified Is this a current diagnosis for this admission?: Yes Plan: Tremendous improvement in renal function since admission. Creatinine is headed towards normal
[2020-10-19] MEDS ORDERED: LISINOPRIL 5 MG TABLET PO SCH (10:00)
[2020-10-19] MEDS ORDERED: CETIRIZINE 10 MG TABLET PO SCH (10:00)
[2020-10-19] MEDS ORDERED: CARVEDILOL 3.125 MG TABLET PO SCH (10:00)
[2020-10-19] MEDS ORDERED: ASCORBIC ACID 500 MG TABLET PO SCH (10:00)
--- NOTE | 2020-10-19 11:59 | PDOC PROGRESS REPORT ---
Subjective Date:: 10/19/20 Subjective:: ALCIDES BARCLAY is a 70 year old male with a past medical history significant for remote liver transplant (1998), CABG (2011), CKD, hypertension, hyperlipidemia, DM 2, and GERD, who was recently discharged from our facility following treatment for community-acquired pneumonia. Patient has been in his usual state of health until today when he increasingly fatigued and weak with a presyncopal event while sitting up in bed. Patient's states that he slept in later than his usual and when she went to wake him, he sat but then slumped to the side. She states that he maintained consciousness but had profound weakness and was unable to sit up or stand up from the bed independently which prompted them to call EMS. Per EMS report, upon arrival, he was found to have a systolic blood pressure in the 60s. Evaluation in the emergency department revealed hypotension (77/46) that has improved to 100/47 following 3 L IVF. Remaining vital signs are stable. Further evaluation revealed mild leukocytosis (WBC is 11.8), baseline anemia (hemoglobin 10.2/hematocrit 30.2), acute kidney injury (creatinine 3.09/BUN 63) with hyponatremia (131.8) hyperkalemia (5.7), and an elevated troponin to 0.128. Chest x-ray revealed persistent interstitial groundglass opacities bilaterally with a small right pleural effusion. EKG shows a first-degree AV block, right bundle branch block, both present on prior EKGs. No ST segment changes. Patient was referred to the hospitalist service for further evaluation management of the above-stated complaints and findings. D3 of hospital stay 10/19/20. Patient was seen and examined at bedside. He feels well overall. Denies any further episodes of weakness, or syncope. Blood pressure currently at 120s over 60s. Troponin has trended down to 0.84 from 1.07. He denies any chest pain, palpitations, shortness of breath. Dr. Jae Elliott has seen him and affirmed that elevated troponin is likely from demand ischemia and JULIAN. Plan today is to resume his carvedilol and lisinopril and see what his blood pressure does. I have also informed him that we will be stopping his hydrochlorothiazide in light of his hypertension. I advised him to wear a compression socks to help with his lower extremity edema. I also spoke to his and updated her of the plan of care. Reason For Visit: JULIAN,HYPERKALEMIA Physical Exam Vital Signs: Temp Pulse Resp BP Pulse Ox 98.2 F 85 18 121/60 98 10/19/20 07:58 10/19/20 07:19 10/19/20 07:19 10/19/20 07:19 10/19/20 07:19 Intake & Output 10/18/20 10/19/20 10/20/20 06:59 06:59 06:59 Intake Total 3560 3336 Output Total 600 Balance 2960 3336 Weight 63.5 kg 63.5 kg 63.5 kg General appearance: PRESENT: no acute distress, cooperative Head exam: PRESENT: atraumatic, normocephalic Eye exam: PRESENT: EOMI, PERRLA Mouth exam: PRESENT: moist Neck exam: PRESENT: full ROM Respiratory exam: PRESENT: clear to auscultation joaquín, symmetrical, unlabored Cardiovascular exam: PRESENT: RRR, +S1, +S2 Pulses: PRESENT: +2 pedal pulses bilateral GI/Abdominal exam: PRESENT: normal bowel sounds, soft. ABSENT: rebound, tenderness Extremities exam: PRESENT: full ROM Musculoskeletal exam: PRESENT: full ROM Neurological exam: PRESENT: alert, awake, oriented to person, oriented to place, oriented to time, oriented to situation Psychiatric exam: PRESENT: normal mood Skin exam: PRESENT: normal color Results Laboratory Results: 10/19/20 05:31 10/19/20 05:31 10/19/20 10/19/20 05:31 05:31 WBC 5.1 RBC 3.27 L Hgb 9.7 L Hct 29.8 L MCV 91 MCH 29.7 MCHC 32.6 RDW 13.9 Plt Count 154 Sodium 139.9 Potassium 4.0 Chloride 109 H Carbon Dioxide 23 Anion Gap 8 BUN 27 H D Creatinine 1.06 Est GFR ( Amer) > 60 Glucose 120 H Calcium 8.4 10/17/20 13:01 Blood Blood Culture (PCR) - Final 10/17/20 13:01 Blood Blood Culture - Final Bacillus Sp. Not Anthracis 10/17/20 10/17/20 10/17/20 13:01 13:01 16:24 Creatine Kinase 75 CK-MB (CK-2) 2.89 Troponin I 0.128 0.397 10/17/20 10/18/20 10/18/20 22:05 00:22 06:02 Creatine Kinase CK-MB (CK-2) Troponin I 0.991 1.120 1.190 10/18/20 10/19/20 10/19/20 15:00 05:31 10:10 Creatine Kinase CK-MB (CK-2) Troponin I 0.819 1.070 0.840 Impressions: Chest X-Ray 10/17/20 14:21 IMPRESSION: Persistent interstitial -ground-glass opacities in both lung bases. Persistent small left Pleural effusion. Assessment and Plan - Diagnosis (1) NSTEMI (non-ST elevated myocardial infarction) Is this a current diagnosis for this admission?: Yes Plan: - Came in with hypotension which has since resolved. patient has a hx of CAD, s/p CABg 2011 - EKG sinus rhythm mobitz 1 AV block, no ST elevation - Troponin 0.128>1.19>0.84 - likely Type 2 Demand ischemia - resumed aspirin, statin, coreg and lisinopril - cardio following (2) JULIAN (acute kidney injury) Is this a current diagnosis for this admission?: Yes Plan: - Crea 3.09>1.06 non oliguric - HCTZ stopped - will continue to monitor (3) CAD (coronary artery disease) Qualifiers: Coronary Disease-Associated Artery/Lesion type: bypass graft [place] vs. transplanted heart: [place] heart Associated angina: without angina Qualified Code(s): I25.810 - Atherosclerosis of coronary artery bypass graft(s) without angina pectoris Is this a current diagnosis for this admission?: Yes Plan: Continue daily aspirin and statin therapy. - resumed his coreg and lisinopril - cardio following (4) Hyponatremia Is this a current diagnosis for this admission?: Yes Plan: Improved; Sodium 131.8-> 135.6>139.9 It appears that he has had mild hyponatremia during his previous two admissions. Hold HCTZ. Liberalize dietary sodium. Follow up chemistry (5) Hypotension Qualifiers: Hypotension type: unspecified hypotension type Qualified Code(s): I95.9 - Hypotension, unspecified Is this a current diagnosis for this admission?: Yes Plan: BP 121/60 asymptomatic - I have resumed his home dose of Coreg and lisinopril restarted at 5 mg daily - HCTZ stopped - will monitor his BP today with anti HTN resumed - Time Time Spent with patient: 15-24 minutes Medications reviewed and adjusted accordingly: Yes Anticipated Discharge Disposition: Home, Self Care Anticipated Discharge Timeframe: within 48 hours
[2020-10-19] MEDS ORDERED: LISINOPRIL 20 MG PO SCH (14:00)
[2020-10-19 16:24] VITALS: BP 98/55
[2020-10-19] MEDS ORDERED: FERROUS SULFATE 325 MG TABLET PO SCH (18:00)
--- NOTE | 2020-10-20 06:45 | PDOC DISCHARGE SUMMARY ---
Impression - Admit/DC Date/PCP Admission Date/Primary Care Provider: 10/17/20 16:[facility] Discharge Date: 10/20/20 - Discharge Diagnosis (1) NSTEMI (non-ST elevated myocardial infarction) Is this a current diagnosis for this admission?: Yes (2) JULIAN (acute kidney injury) Is this a current diagnosis for this admission?: Yes (3) CAD (coronary artery disease) Is this a current diagnosis for this admission?: Yes (4) Hyponatremia Is this a current diagnosis for this admission?: Yes (5) Hypotension Is this a current diagnosis for this admission?: Yes - Assessment Summary: (1) NSTEMI (non-ST elevated myocardial infarction) Is this a current diagnosis for this admission?: Yes Plan: - Came in with hypotension which has since resolved. patient has a hx of CAD, s/p CABg 2011 - EKG sinus rhythm mobitz 1 AV block, no ST elevation - Troponin 0.128>1.19>0.84 - likely Type 2 Demand ischemia - resumed aspirin, statin, coreg and lisinopril - cardio following (2) JULIAN (acute kidney injury) Is this a current diagnosis for this admission?: Yes Plan: - Crea 3.09>1.06 non oliguric - HCTZ stopped - will continue to monitor (3) CAD (coronary artery disease) Qualifiers: Coronary Disease-Associated Artery/Lesion type: bypass graft [place] vs. transplanted heart: [place] heart Associated angina: without angina Qualified Code(s): I25.810 - Atherosclerosis of coronary artery bypass graft(s) without angina pectoris Is this a current diagnosis for this admission?: Yes Plan: Continue daily aspirin and statin therapy. - resumed his coreg and lisinopril - cardio following (4) Hyponatremia Is this a current diagnosis for this admission?: Yes Plan: Improved; Sodium 131.8-> 135.6>139.9 It appears that he has had mild hyponatremia during his previous two admissions. Hold HCTZ. Liberalize dietary sodium. Follow up chemistry (5) Hypotension Qualifiers: Hypotension type: unspecified hypotension type Qualified Code(s): I95.9 - Hypotension, unspecified Is this a current diagnosis for this admission?: Yes Plan: BP 121/60 asymptomatic - I have resumed his home dose of Coreg and lisinopril restarted at 5 mg daily - HCTZ stopped - will monitor his BP today with anti HTN resumed - Additional Information Resuscitation Status: Full Code Discharge Diet: As Tolerated Discharge Activity: Activity As Tolerated [facility]errals: [facility] [[facility]] - Follow up as needed (The patient will make his own appointment upon discharge.) Prescriptions: Lisinopril [Prinivil 5 mg Tablet] 5 mg PO DAILY 30 Days #30 tablet Home Medications: Aspirin [Ecotrin] 81 mg PO DAILY 08/07/20 Carvedilol [Coreg 3.125 mg Tablet] 3.125 mg PO DAILY 08/07/20 Cetirizine HCl [Zyrtec 10 mg Tablet] 10 mg PO DAILY 08/07/20 Cyclobenzaprine HCl [Flexeril 10 mg Tablet] 10 mg PO BIDP PRN 08/07/20 Fluticasone Propionate [Flonase Nasal [place] 50 Mcg/Jordan 16 gm] 1 spray NASL BID 08/07/20 Lipase/Protease/Amylase [Creon Dr 3,000 Units Capsule] 1 each PO ASDIR PRN 08/07/20 Metformin HCl [Glucophage] 500 mg PO BID 08/07/20 Mycophenolate Mofetil [Cellcept 250 mg Capsule] 1,000 mg PO Q12 08/07/20 Omeprazole 20 mg PO BID 08/07/20 Promethazine HCl [Phenergan 25 mg Tablet] 25 mg PO DAILYP PRN 08/07/20 Trazodone HCl 50 mg PO QHS 08/07/20 Magnesium Oxide 400 mg PO BID #20 08/08/20 Ascorbic Acid [Vitamin C 500 mg Tablet] 250 mg PO DAILY 10/06/20 Atorvastatin Calcium [Lipitor 20 mg Tablet] 10 mg PO DAILY 10/06/20 Iron 65 mg PO BID 10/06/20 Tramadol HCl [Ultram 50 mg Tablet] 100 mg PO QID 10/06/20 Pregabalin [Lyrica 100 mg Capsule] 100 mg PO QAM 10/18/20 Pregabalin [Lyrica 100 mg Capsule] 200 mg PO QHS 10/18/20 Lisinopril [Prinivil 5 mg Tablet] 5 mg PO DAILY 30 Days #30 tablet 10/19/20 History of Present Illiness History of Present Illness: ALCIDES BARCLAY is a 70 year old male, with a past medical history significant for remote liver transplant (1998), CABG (2011), CKD, hypertension, hyperlipidemia, DM 2, and GERD, who was recently discharged from our facility following treatment for community-acquired pneumonia. Patient has been in his usual state of health until today when he increasingly f atigued and weak with a presyncopal event while sitting up in bed. Patient's states that he slept in later than his usual and when she went to wake him, he sat but then slumped to the side. She states that he maintained consciousness but had profound weakness and was unable to sit up or stand up from the bed independently which prompted them to call EMS. Per EMS report, upon arrival, he was found to have a systolic blood pressure in the 60s. Evaluation in the emergency department revealed hypotension (77/46) that has improved to 100/47 following 3 L IVF. Remaining vital signs are stable. Further evaluation revealed mild leukocytosis (WBC is 11.8), baseline anemia (hemoglobin 10.2/hematocrit 30.2), acute kidney injury (creatinine 3.09/BUN 63) with hyponatremia (131.8) hyperkalemia (5.7), and an elevated troponin to 0.128. Chest x-ray revealed persistent interstitial groundglass opacities bilaterally with a small right pleural effusion. EKG shows a first-degree AV block, right bundle branch block, both present on prior EKGs. No ST segment changes. Patient was referred to the hospitalist service for further evaluation management of the above-stated complaints and findings. Hospital Course Hospital Course: D3 of hospital stay 10/19/20. Patient was seen and examined at bedside. He feels well overall. Denies any further episodes of weakness, or syncope. Blood pressure currently at 120s over 60s. Troponin has trended down to 0.84 from 1.07. He denies any chest pain, palpitations, shortness of breath. Dr. Jae Elliott has seen him and affirmed that elevated troponin is likely from demand ischemia and JULIAN. Plan today is to resume his carvedilol and lisinopril and see what his blood pressure does. I have also informed him that we will be stopping his hydrochlorothiazide in light of his hypertension. I advised him to wear a compression socks to help with his lower extremity edema. I also spoke to his and updated her of the plan of care. Blood pressure was repeated in the afternoon including orthostatic vitals and patient remained stable with a BP of 140/70 standing and he was eventually discharged. Physical Exam Vital Signs: Temp Pulse Resp BP Pulse Ox 98.2 F 64 18 98/55 L 98 10/19/20 16:00 10/19/20 16:00 10/19/20 16:00 10/19/20 16:00 10/19/20 16:00 Intake & Output 10/18/20 10/19/20 10/20/20 06:59 06:59 06:59 Intake Total 3560 3336 Output Total 600 Balance 2960 3336 Weight 63.5 kg 63.5 kg 63.5 kg General appearance: PRESENT: no acute distress, cooperative Head exam: PRESENT: atraumatic, normocephalic Eye exam: PRESENT: EOMI, PERRLA Mouth exam: PRESENT: moist Neck exam: PRESENT: full ROM Respiratory exam: PRESENT: clear to auscultation joaquín, symmetrical, unlabored Cardiovascular exam: PRESENT: RRR, +S1, +S2 GI/Abdominal exam: PRESENT: normal bowel sounds, soft. ABSENT: rebound, tende rness Extremities exam: PRESENT: full ROM Musculoskeletal exam: PRESENT: full ROM Neurological exam: PRESENT: alert, awake, oriented to person, oriented to place, oriented to time, oriented to situation Psychiatric exam: PRESENT: normal mood Skin exam: PRESENT: normal color Results Laboratory Results: WBC 5.1 10^3/uL (4.0-10.5) 10/19/20 05:31 RBC 3.27 10^6/uL (4.35-5.55) L 10/19/20 05:31 Hgb 9.7 g/dL (13.5-17.0) L 10/19/20 05:31 Hct 29.8 % (37.9-51.0) L 10/19/20 05:31 MCV 91 fl (80-97) 10/19/20 05:31 MCH 29.7 pg (27.0-33.4) 10/19/20 05:31 MCHC 32.6 g/dL (32.0-36.0) 10/19/20 05:31 RDW 13.9 % (11.5-14.0) 10/19/20 05:31 Plt Count 154 10^3/uL (150-450) 10/19/20 05:31 Lymph % (Auto) 10.6 % (13-45) L 10/18/20 06:02 [place] % (Auto) 2.8 % (3-13) L 10/18/20 06:02 Eos % (Auto) 0.9 % (0-6) 10/18/20 06:02 Baso % (Auto) 0.3 % (0-2) 10/18/20 06:02 Absolute Neuts (auto) 6.2 10^3/uL (1.7-8.2) 10/18/20 06:02 Absolute Lymphs (auto) 0.8 10^3/uL (0.5-4.7) 10/18/20 06:02 Absolute Monos (auto) 0.2 10^3/uL (0.1-1.4) 10/18/20 06:02 Absolute Eos (auto) 0.1 10^3/uL (0.0-0.6) 10/18/20 06:02 Absolute Basos (auto) 0.0 10^3/uL (0.0-0.2) 10/18/20 06:02 Seg Neutrophils % 85.4 % (42-78) H 10/18/20 06:02 Sodium 139.9 mmol/L (137-145) 10/19/20 05:31 Potassium 4.0 mmol/L (3.6-5.0) 10/19/20 05:31 Chloride 109 mmol/L (98-107) H 10/19/20 05:31 Carbon Dioxide 23 mmol/L (22-30) 10/19/20 05:31 Anion Gap 8 (5-19) 10/19/20 05:31 BUN 27 mg/dL (7-20) H D 10/19/20 05:31 Creatinine 1.06 mg/dL (0.52-1.25) 10/19/20 05:31 Est GFR ( Amer) > 60 (>60) 10/19/20 05:31 Est GFR (MDRD) Non-Af > 60 (>60) 10/19/20 05:31 Glucose 120 mg/dL (75-110) H 10/19/20 05:31 POC Glucose 106 mg/dL (70-110) 10/19/20 12:12 Hemoglobin A1c % 4.9 % (4.7-6.0) 10/18/20 06:02 Lactic Acid 1.8 mmol/L (0.7-2.1) 10/17/20 13:01 Calcium 8.4 mg/dL (8.4-10.2) 10/19/20 05:31 Total Bilirubin 0.7 mg/dL (0.2-1.3) 10/17/20 13:01 Direct Bilirubin 0.3 mg/dL (0.0-0.4) 10/17/20 13:01 Neonat Total Bilirubin Not Reportable 10/17/20 13:01 Neonat Direct Bilirubin Not Reportable 10/17/20 13:01 Neonat Indirect Bili Not Reportable 10/17/20 13:01 AST 22 U/L (17-59) 10/17/20 13:01 ALT 10 U/L (<50) 10/17/20 13:01 Alkaline Phosphatase 53 U/L (38-126) 10/17/20 13:01 Creatine Kinase 75 U/L (55-170) 10/17/20 13:01 CK-MB (CK-2) 2.89 ng/mL (<4.55) 10/17/20 13:01 Troponin I 0.840 ng/mL 10/19/20 10:10 Total Protein 5.0 g/dL (6.3-8.2) L 10/17/20 13:01 Albumin 2.9 g/dL (3.5-5.0) L 10/17/20 13:01 TSH 0.73 uIU/mL (0.47-4.68) 10/18/20 06:02 Urine Color YELLOW 10/17/20 15:52 Urine Appearance CLEAR 10/17/20 15:52 Urine pH 5.0 (5.0-9.0) 10/17/20 15:52 Ur Specific [place] 1.023 10/17/20 15:52 Urine Protein NEGATIVE mg/dL (NEGATIVE) 10/17/20 15:52 Urine Glucose (UA) NEGATIVE mg/dL (NEGATIVE) 10/17/20 15:52 Urine Ketones NEGATIVE mg/dL (NEGATIVE) 10/17/20 15:52 Urine Blood NEGATIVE (NEGATIVE) 10/17/20 15:52 Urine Nitrite NEGATIVE (NEGATIVE) 10/17/20 15:52 Urine Bilirubin NEGATIVE (NEGATIVE) 10/17/20 15:52 Urine Urobilinogen NEGATIVE mg/dL (<2.0) 10/17/20 15:52 Ur Leukocyte Esterase NEGATIVE (NEGATIVE) 10/17/20 15:52 Urine WBC (Auto) 1 /HPF 10/17/20 15:52 Urine RBC (Auto) 0 /HPF 10/17/20 15:52 Urine Mucus (Auto) RARE /LPF 10/17/20 15:52 Urine Ascorbic Acid NEGATIVE (NEGATIVE) 10/17/20 15:52 Urine Opiates Screen UNCONFIRMED POSITIVE 10/17/20 15:52 Urine Methadone Screen NEGATIVE 10/17/20 15:52 Ur Barbiturates Screen NEGATIVE 10/17/20 15:52 Ur Phencyclidine Scrn NEGATIVE 10/17/20 15:52 Ur Amphetamines Screen NEGATIVE 10/17/20 15:52 U Benzodiazepines Scrn NEGATIVE 10/17/20 15:52 Urine Cocaine Screen NEGATIVE 10/17/20 15:52 U Marijuana (THC) Screen NEGATIVE 10/17/20 15:52 COVID-19 Source See comment 10/17/20 14:48 COVID-19 (SANTI) Not Detected (Not Detect) 10/17/20 14:48 10/17/20 10/17/20 10/17/20 13:01 16:24 22:05 CK-MB (CK-2) 2.89 Troponin I 0.128 0.397 0.991 10/18/20 10/18/20 10/18/20 00:22 06:02 15:00 CK-MB (CK-2) Troponin I 1.120 1.190 0.819 10/19/20 10/19/20 05:31 10:10 CK-MB (CK-2) Troponin I 1.070 0.840 Impressions: Chest X-Ray 10/17/20 14:21 IMPRESSION: Persistent interstitial -ground-glass opacities in both lung bases. Persistent small left Pleural effusion. Plan Plan of Treatment: stop HCTZ carvedilol resumed Lisinopril decreased to 5 mg Time Spent: Greater than 30 Minutes Stroke Is this a Stroke Patient?: No Acute Heart Failure Is this a Heart Failure Patient?: No
== END 2020-10-19 17:38 | disposition home or self-care (01) | DRG 682 ==
LOC: ER 12:32 → EH 16:35 → 3W 19:56 → 3S 10-19 12:33
PROVIDERS: ADMIT Family Medicine; ATTEND Internal Medicine
DX: N17.9 Acute kidney failure, unspecified (principal); J18.9 Pneumonia, unspecified organism; I21.A1 Myocardial infarction type 2; E87.1 Hypo-osmolality and hyponatremia; I25.810 Atherosclerosis of coronary artery bypass graft(s) without angina pectoris; Z94.4 Liver transplant status; I95.9 Hypotension, unspecified; I44.0 Atrioventricular block, first degree; K21.9 Gastro-esophageal reflux disease without esophagitis; D63.1 Anemia in chronic kidney disease; I45.10 Unspecified right bundle-branch block; E78.5 Hyperlipidemia, unspecified; E11.9 Type 2 diabetes mellitus without complications; E87.5 Hyperkalemia; I49.3 Ventricular premature depolarization; Z20.828 Contact with and (suspected) exposure to other viral communicable diseases; I10 Essential (primary) hypertension; Z95.1 Presence of aortocoronary bypass graft; Z79.899 Other long term (current) drug therapy; Z79.82 Long term (current) use of aspirin; Z79.84 Long term (current) use of oral hypoglycemic drugs; Z88.6 Allergy status to analgesic agent; Z88.8 Allergy status to other drugs, medicaments and biological substances
CPT/HCPCS: 36415; 71045; 80048; 80053; 80307; 81001; 82550; 82553; 82962; 83036; 83605; 84443; 84484; 85025; 85027; 87040; 87077; 87150; 87635; 93005; 93010; 96360; 96361; 99285; C9803; J1650; J1815; J3490; J7030; J7517